=== PATIENT | male | born 1955 | race Caucasian/White ===

== ENCOUNTER 2020-12-13 07:36 | Outpatient (REF) | payer BC, SELFPAY ==
[2020-12-13 11:15] LABS: Anion Gap 9 (12-20); Blood Urea Nitrogen 23 mg/dL (9-16); Carbon Dioxide 33 mmol/L (22-29); Chloride 103 mmol/L (96-108); Estimated Glomerular Filt Rate > 60; Potassium 4.1 mmol/L (3.3-5.1); Sodium 141 mmol/L (135-145)
== END 2020-12-13 07:37 | disposition home or self-care (01) ==
LOC: HO.10HDL 07:36
PROVIDERS: Visit Provider Family Medicine
DX: I10 Essential (primary) hypertension (principal)
CPT/HCPCS: 36415; 80051; 82565; 84520

== ENCOUNTER 2021-07-31 09:06 | Outpatient (REF) | payer BC, SELFPAY ==
[2021-07-31 10:24] LABS: MANUAL DIFF FLAG NO
[2021-07-31 10:26] LABS: Basophils Percent Auto 0.3 % (0-2); Eosinophils Absolute Auto 0.4 X10*3/uL (0.0-0.4); Eosinophils Percent Auto 5.8 % (0-4); Hematocrit 39.2 % (42.0-52.0); Hemoglobin 12.1 g/dl (14.0-18.0); Imm Gran Abs Auto 0.01 X10*3/uL (0.00-0.03); Imm Gran Pct Auto 0.2 % (0.0-0.4); Lymphocytes Absolute Auto 1.6 X10*3/uL (1.2-4.9); Mean Corpuscular HGB Conc 30.9 g/dl (31.0-36.0); Mean Corpuscular Hemoglobin 27.7 pg (27.0-33.0); Mean Corpuscular Volume 89.7 fL (80.0-98.0); Mean Platelet Volume 9.6 fL (9.4-12.4); Monocytes Absolute Auto 0.7 X10*3/uL (0.1-1.2); Monocytes Percent Auto 11.9 % (2-11); Neutrophils Absolute Auto 3.37 x10*3/uL (2.0-8.3); Neutrophils Percent Auto 55.8 % (45-73); Platelet Count 313 X10*3/uL (160-400); Red Blood Count 4.37 X10*6/uL (4.60-5.80); Red Cell Distribution Width 13.2 % (11.0-16.0)
[2021-07-31 10:53] LABS: Anion Gap 9 (12-20); Blood Urea Nitrogen 26 mg/dL (9-16); Carbon Dioxide 30 mmol/L (22-29); Chloride 106 mmol/L (96-108); Cholesterol 132 mg/dL; Estimated Glomerular Filt Rate > 60; HDL Cholesterol 34 mg/dL; LDL Cholesterol Calculated 64 mg/dl; Potassium 4.1 mmol/L (3.3-5.1); Sodium 141 mmol/L (135-145); Triglycerides 173 mg/dL
== END 2021-07-31 09:07 | disposition home or self-care (01) ==
LOC: HO.10HDL 09:06
PROVIDERS: Visit Provider Family Medicine
DX: I10 Essential (primary) hypertension (principal); E78.00 Pure hypercholesterolemia, unspecified; D64.9 Anemia, unspecified
CPT/HCPCS: 36415; 80051; 80061; 82565; 84520; 85025

== ENCOUNTER 2022-07-03 08:51 | Outpatient (REF) | payer MEDICARE, SELFPAY ==
[2022-07-03 10:53] LABS: Anion Gap 13 (12-20); Blood Urea Nitrogen 23 mg/dL (9-16); Carbon Dioxide 30 mmol/L (22-29); Chloride 104 mmol/L (96-108); Estimated Glomerular Filt Rate > 60; Potassium 4.4 mmol/L (3.3-5.1); Sodium 143 mmol/L (135-145)
== END 2022-07-03 08:52 | disposition home or self-care (01) ==
LOC: HO.10HDL 08:51
PROVIDERS: Visit Provider Family Medicine
DX: I10 Essential (primary) hypertension (principal)
CPT/HCPCS: 36415; 80051; 82565; 84520

== ENCOUNTER 2022-07-28 08:14 | Outpatient (REF) | payer MEDICARE, SELFPAY ==
--- NOTE | ~2022-07-28 | XR_ITS ---
EXAMINATION: XR HIP, RIGHT CLINICAL INFORMATION: Pain of right hip COMPARISON: None TECHNIQUE: Two views of the right hip. FINDINGS: The femoral head is well-positioned within the intact acetabulum. The hip joint space is maintained. There appears to be negligible osteophyte formation at the lateral femoral head. No findings of any significant degenerative or inflammatory arthropathy of the hip. No osteonecrosis. No blastic or lytic bone lesion. The visualized right-sided pelvic bones, and right sacroiliac joint, are normal. Metallic tacks project over the lower pelvis. Vasectomy clips. XR/XR hip RT min 2V IMPRESSION: No fracture or malalignment. The right hip joint space is well-preserved. No significant findings at the right hip.
== END 2022-07-28 08:15 | disposition home or self-care (01) ==
LOC: HO.XRAY 08:14
PROVIDERS: PCP Family Medicine; Visit Provider Family Medicine
DX: M25.551 Pain in right hip (principal)
CPT/HCPCS: 73502

== ENCOUNTER 2022-10-21 08:01 | Outpatient (REF) | payer MEDICARE, SELFPAY ==
--- NOTE | 2022-10-21 | PFT_ITS ---
INDICATION: Shortness of breath. SPIROMETRY: FEV1 to FVC of 82% with an FEV1 of 2.75 L, which is 93% predicted and FVC of 3.32 L, which is predicted. No significant response to bronchodilators noted. Maximum voluntary ventilation predicted. LUNG VOLUMES: Total lung capacity 86% predicted with expiratory residual volume of 9% predicted. DIFFUSION CAPACITY: DLCO of 93% predicted. COMPARISONS: None. INTERPRETATION: No obstructive nor restrictive ventilatory defects identified. No significant response to bronchodilators noted. Normal maximum voluntary ventilation. Lung volumes are within normal limits, although a decrease in the expiratory residual volume could be the result of an elevated BMI. Diffusion capacity is within normal limits. No clear explanation for the patient's dyspnea based on the this PFT. Clinical correlation warranted. MD FRANCESCO Wynn/MODL / [id number]
== END 2022-10-21 08:02 | disposition home or self-care (01) ==
LOC: HO.RESP 08:01
PROVIDERS: PCP Family Medicine; Visit Provider Family Medicine
DX: J45.909 Unspecified asthma, uncomplicated (principal); R06.02 Shortness of breath
CPT/HCPCS: 94060; 94727; 94729

== ENCOUNTER 2022-11-24 12:11 | Outpatient (REF) | payer MEDICARE, SELFPAY ==
[2022-11-24 12:56] LABS: COVID-19 Test Negative (Negative); IDNOW Serial# BCCEAD1C
== END 2022-11-24 12:12 | disposition home or self-care (01) ==
LOC: HO.LAB 12:11
PROVIDERS: PCP Family Medicine; Visit Provider Internal Medicine
DX: Z20.822 Contact with and (suspected) exposure to COVID-19 (principal)
CPT/HCPCS: 87635; C9803

== ENCOUNTER 2022-11-24 14:14 | Outpatient (REF) | payer MEDICARE, SELFPAY ==
--- NOTE | ~2022-11-24 | XR_ITS ---
EXAMINATION: XR CHEST CLINICAL INFORMATION: Shortness of breath COMPARISON: Chest radiograph from 04/05/2013 TECHNIQUE: 2 views of the chest were obtained. FINDINGS: Slight prominence of interstitial lung markings. Right basilar atelectasis. No pneumothorax. Trachea is midline. Cardiac mediastinal silhouette is not enlarged. No large pleural effusion. Osseous structures are intact. Soft tissues are unremarkable. XR/XR chest 2V IMPRESSION: 1. Slight prominence of interstitial lung markings. 2. Right basilar atelectasis.
== END 2022-11-24 14:15 | disposition home or self-care (01) ==
LOC: HO.XRAY 14:14
PROVIDERS: PCP Family Medicine; Visit Provider Family Medicine
DX: R06.02 Shortness of breath (principal); R06.2 Wheezing; R05.9 Cough, unspecified
CPT/HCPCS: 71046

== ENCOUNTER 2023-11-19 11:59 | Outpatient (REF) | payer MEDICARE, SELFPAY ==
[2023-11-19 13:08] LABS: MANUAL DIFF FLAG NO
[2023-11-19 13:24] LABS: Basophils Percent Auto 0.4 % (0-2); Eosinophils Absolute Auto 0.3 X10*3/uL (0.0-0.4); Eosinophils Percent Auto 5.5 % (0-4); Hematocrit 44.5 % (42.0-52.0); Hemoglobin 14.6 g/dl (14.0-18.0); Imm Gran Abs Auto 0.01 X10*3/uL (0.00-0.03); Imm Gran Pct Auto 0.2 % (0.0-0.4); Lymphocytes Absolute Auto 1.7 X10*3/uL (1.2-4.9); Lymphocytes Percent Auto 30.4 % (20-40); Mean Corpuscular HGB Conc 32.8 g/dl (31.0-36.0); Mean Corpuscular Hemoglobin 30.9 pg (27.0-33.0); Mean Corpuscular Volume 94.1 fL (80.0-98.0); Mean Platelet Volume 9.2 fL (9.4-12.4); Monocytes Absolute Auto 0.6 X10*3/uL (0.1-1.2); Monocytes Percent Auto 11.8 % (2-11); Neutrophils Absolute Auto 2.8 x10*3/uL (2.0-8.3); Neutrophils Percent Auto 51.7 % (45-73); Platelet Count 245 X10*3/uL (160-400); Red Blood Count 4.73 X10*6/uL (4.60-5.80); Red Cell Distribution Width 12.5 % (11.0-16.0); White Blood Count 5.4 X10*3/uL (4.8-10.8)
[2023-11-19 13:55] LABS: Prostate Specific Antigen Scr 0.53 ng/mL (<0.05-4.0)
== END 2023-11-19 12:00 | disposition home or self-care (01) ==
LOC: HO.10HDL 11:59
PROVIDERS: Visit Provider Family Medicine
DX: R53.83 Other fatigue (principal); R35.1 Nocturia; Z12.5 Encounter for screening for malignant neoplasm of prostate
CPT/HCPCS: 36415; 84153; 85025

== ENCOUNTER 2024-10-12 13:39 | Outpatient (REF) | payer MEDICARE, SELFPAY ==
--- NOTE | ~2024-10-12 | XR_ITS ---
CLINICAL HISTORY: RIGHT SHOULDER PAIN 5 view right shoulder Comparison: None Findings: Bones intact. No dislocations. Moderate degenerative change of the glenohumeral and acromioclavicular joints. No erosions. No radiopaque foreign body. IMPRESSION: 1. No acute findings. 2. Moderate degenerative changes. This document has been electronically signed by: Jabari Hays MD on 10/13/2024 10:50:23
[2024-10-12 15:08] LABS: Appearance Urine Clear; Color Urine Yellow; Glucose Urine UA Negative (Negative); Leukocyte Esterase Urine Negative (Negative); Nitrite Urine Negative (Negative); PH 6.5 (5.0-9.0); Urine Blood Negative (Negative); Urine Ketones Negative (Negative); Urine Protein Negative (Neg-Trace)
== END 2024-10-12 13:40 | disposition home or self-care (01) ==
LOC: HO.XRAY 13:39
PROVIDERS: PCP Family Medicine; Visit Provider Family Medicine
DX: M25.511 Pain in right shoulder (principal); N23 Unspecified renal colic
CPT/HCPCS: 73030; 81003

== ENCOUNTER → 2024-10-12 14:00 | Outpatient (BNV) | payer MEDICARE, SELFPAY | PROVIDERS: PCP Family Medicine; Visit Provider Radiology Vascular & Interventional Radiology | DX: M19.011 Primary osteoarthritis, right shoulder (principal) | CPT/HCPCS: 73030 ==

== ENCOUNTER 2024-12-29 11:14 | Outpatient (REF) | payer MEDICARE, SELFPAY ==
--- OUTSIDE RECORDS SUMMARY | 2024-12-29 12:34 | XMS_ITS | Encounter Summary ---
Author Organization [facility] Address [address] [place] [address] Care Team Providers Care Deep Sea Diver Name Role Phone Pcp, No Primary Care Provider Unavailabl e Encounter Details Date Type Department Care Team (Late st Contact Info) Description 09/07/2017 Scanned Document [address] [phone] Provider, Generic Social History Tobacco Use Types [...] on filedocumented in this encounter Care Teams Deep Sea Diver Relationship Specialty Start Date End Date Pcp, No PCP - General General Medicine 06/11/17 documented as of this encounter
--- OUTSIDE RECORDS SUMMARY | 2024-12-29 12:34 | XMS_ITS ---
Author Name [facility] Organization Unknown Encounters Encounter Type Encounter Reason Primary Diagnosis Location Date Ambulatory Spinal stenosis, lumbar region without neurogenic claudication [facility] 10/24/2021 Care Team Organization Name Specialty Phone Email Start Date End Da te [facility] PCP,No Primary Care 10/24/2021 [facility] Primary Care 10/24/2021
--- OUTSIDE RECORDS SUMMARY | 2024-12-29 12:34 | XMS_ITS | Encounter Summary ---
Author Organization [facility] Address [address] [place] [address] Care Team Providers Care Club Licensee Name Role Phone Pcp, No Primary Care Provider Unavailabl e Encounter Details Date Type Department Care Team (Late st Contact Info) Description 09/02/2017 Scanned Document [address] [phone] Provider, Generic Social History Tobacco Use Types [...] on filedocumented in this encounter Care Teams Club Licensee Relationship Specialty Start Date End Date Pcp, No PCP - General General Medicine 06/11/17 documented as of this encounter
--- OUTSIDE RECORDS SUMMARY | 2024-12-29 12:34 | XMS_ITS | Clinical Summary ---
Author Organization [facility] Address [address] [place] [address] Care Team Providers Care Implant Polisher Name Role Phone Pio Hooper Primary Care Provider [phone] Allergies Active Allergy Reactions Criticality Noted Date [...] reflux disease without esophagi tis 06/16/2017 Immunizations Immunization Administration Dates Next Due COVID-19 mRNA (PFIZER) [...] Vaccines (1 of 2) 2004 Pneumococcal Vaccine, 50+ Years (2 of 2 - PPSV23) 06/17/2020 06/17/2019 COVID-19 Vaccine (3 - 2023-2 5 season) 2024 12/22/2020, 11/30/2020 Influenza Vaccine (Season Ended) 2025 06/17/2019 HPV Vaccines Aged Out No longer eligi ble based on patient's age to complete this topic Hepatitis A Vaccines Aged Out No long er eligible based on patient's age to complete this topic Meningococcal Vaccine Aged Out No po veronika eligible based on patient's age to complete this topic Insurance AIG Advance Directives For more information, please contact: [phone] Documents on File Type Date Recorded Patient Counterintelligence Analyst Expl anation Advance Directives 07/23/2018 1:19 PM Care Teams Implant Polisher Relationship Specialty Start Date End Date Pio Hooper [address] [place] [phone] PCP - General 10/24/21
--- OUTSIDE RECORDS SUMMARY | 2024-12-29 12:34 | XMS_ITS | Clinical Summary ---
Author Organization [facility] Address [address] [place] [address] Care Team Providers Care Appellate Court Judge Name Role Phone Pio Hooper MD Primary Care Provider [phone] Social History Tobacco Use Types Packs/Day Years [...] age to complete this topic Care Teams Appellate Court Judge Relationship Specialty Start Date End Date Pio Hooper MD [address] [place] [address] [place] [address] PCP - General Internal Medicine 09/07/17
--- OUTSIDE RECORDS SUMMARY | 2024-12-29 12:34 | XMS_ITS | Patient Health Record ---
Author Organization [facility] Address [address] [place] [phone] Care Team Providers Care Chisel Mortiser Operator Name Role Phone Rufus RICHARDSON, Pio Primary Care Provider UnavailDavian Herrera Unavailable [phone] Allergies Allergen (clinical drug ingredient) Drug/Non Drug Allergy documented on EMR Reaction Allergy Type Onset Date Status Substance with 5-rnfdeaw-1-methylgluta ryl-coenzyme A reductase inhibitor mechanism of action (substance) Statins Unknown Drug Allergy Active Penicillin Unknown Drug Allergy Active Reason For Referral No Information Medications Medication SIG (Take, Route, Frequency, Duration) Notes [...] 20 MG Oral for 90 A ctive Immunizations Vaccine Route Administration Date Status Comme nts Influenza Unknown 07/07/2018 Administered Influenza Unknown 06/01/2019 Administered Pneumococcal Unknown 05/29/2019 Administered Social History Tobacco Use: Social History Observation Description Date Details (start date - stop date) Former Smoker NA - NA Tobacco Use/Smoking Question Answer Notes Patient is a former smoker How long has it been since you last smoked? > 10 years Section Notes: Nonsmoker > 10 yrs;no alcoho l Nonsmoker > 10 yrs;no alcoho l Nonsmoker > 10 yrs;no alcoho l Nonsmoker > 10 yrs;no alcoho l Nonsmoker > 43 yrs;no alcoho l Problems Problem Type SNOMED Code ICD Code Onset Dates Problem Status W/U Status Risk Notes Problem 904521097 Encounter for screening for malignant neoplasm of colon (Z12.11) Active confirmed Problem 819365105 Gastroesophageal reflux disease with esophagitis (K21.0) Active confirmed Problem 866249814 Hx of adenomatou s colonic polyps (Z86.010) Active confirmed Problem Gastroesophageal reflux disease (disorder) (941697736) Chronic GERD (K21.9) Active confirmed Problem Personal history of adenomatous and serrated colon polyps (Z86.0101) Active confirmed Vital Signs Blood pressure diastolic 00 mm Hg 09/13/2024 Height 66 in 09/13/2024 Blood pressure systolic 00 mm Hg 09/13/2024 Weight 170 lbs 09/13/2024 BMI 27.44 kg/m2 09/13/2024 Encounters Encounter Location Date Provider Diagnosis [facility] [address] [place] [address] 09/13/2024 Davian Ochoa Hx of adenomatous colonic polyps Z86.010 ; Chronic GERD K21.9 and Encounter for screening for malignant neoplasm of colon Z12.11 Assessments Encounter Date Diagnosis (ICD Code) Assessment Notes Treatment Notes Treatment Clinical Notes Section Notes 09/13/2024 Hx of adenomatous colonic polyps (ICD-10 - Z86.010) Overall, Delfino appears well. His reflux seems to be stable on his current omeprazole regimen. Given the history of esophagitis I advised him to continue this on a long-term basis. Given no particular upper GI complaints presently and no history of Goldman's esophagus, I don't think a repeat endoscopy is required at this time. I did recommend a followup colonoscopy for further screening given his history of tubular adenomas and his last colonoscopy being over 5 years ago. We did review the rationale for that in regard to colon cancer prevention. Full consent was obtained for this, including risks of bleeding and perforation. The procedure will be done monitored anesthesia care. He was advised to stop his clopidogrel for 3 days before the procedure and we shall clear that with his neurologist. Delfino was comfortable with this plan. Thank you again for allowing me to participate in Delfino's care. I shall continue to keep you advised of his progress. 09/13/2024 Chronic GERD (ICD-10 - K21.9) Overall, Delfino appears well. His reflux seems to be stable on his current omeprazole regimen. Given the history of esophagitis I advised him to continue this on a long-term basis. Given no particular upper GI complaints presently and no history of Goldman's esophagus, I don't think a repeat endoscopy is required at this time. I did recommend a followup colonoscopy for further screening given his history of tubular adenomas and his last colonoscopy being over 5 years ago. We did review the rationale for that in regard to colon cancer prevention. Full consent was obtained for this, including risks of bleeding and perforation. The procedure will be done monitored anesthesia care. He was advised to stop his clopidogrel for 3 days before the procedure and we shall clear that with his neurologist. Delfino was comfortable with this plan. Thank you again for allowing me to participate in Delfino's care. I shall continue to keep you advised of his progress. 09/13/2024 Encounter for screening for malignant neoplasm of colon (ICD-10 - Z12.11) Stop Plavix(Clopidog rel) for three days before the colonoscopy and we will clear that with your neurologist, Dr. Hearn. Overall, Delfino appears well. His reflux seems to be stable on his current omeprazole regimen. Given the history of esophagitis I advised him to continue this on a long-term basis. Given no particular upper GI complaints presently and no history of Goldman's esophagus, I don't think a repeat endoscopy is required at this time. I did recommend a followup colonoscopy for further screening given his history of tubular adenomas and his last colonoscopy being over 5 years ago. We did review the rationale for that in regard to colon cancer prevention. Full consent was obtained for this, including risks of bleeding and perforation. The procedure will be done monitored anesthesia care. He was advised to stop his clopidogrel for 3 days before the procedure and we shall clear that with his neurologist. Delfino was comfortable with this plan. Thank you again for allowing me to participate in Delfino's care. I shall continue to keep you advised of his progress. Plan Of Treatment Future Test Test Name Order Date COLONOSCOPY 11/08/2013 UPPER GI ENDOSCOPY 10/27/2018 COLONOSCOPY 10/27/2018 COLONOSCOPY 09/13/2024 Next Appt Details Provider Name:Davian Ochoa , 01/02/2025 10:40:00 AM, [address] , [place], [place], [id number], Insurance Providers Payer Name Payer Address Payer Phone Subscriber Number Group Number Insured Name Patient Relationship to Insured Coverage Start Date Coverage End Date [facility] [address] [place] [address] [id number] MARTÍN PIRES Self - patient is the insured Medical (General) History Medical History History ICD Code GERD-EGD's in 1998, 2007, an d 11-14-2008--reflux esophagitis--small to mod-sized HH---no Goldman's Colonoscopy 07-17-2006--1 small tubular adenoma removed Hyperlipidemia Anxiety Asthma Denies OR,DM,renal disease Neg. colonoscopy in 04/2014 e xcept [...]
--- OUTSIDE RECORDS SUMMARY | 2024-12-29 12:34 | XMS_ITS | Encounter Summary ---
Author Organization [facility] Address [address] [place] [address] Care Team Providers Care Wind Commissioning Technician Name Role Phone Pcp, No Primary Care Provider Unavailabl e Encounter Details Date Type Department Care Team (Late st Contact Info) Description 09/07/2017 Scanned Document [address] [phone] Provider, Generic Social History Tobacco Use Types [...] on filedocumented in this encounter Care Teams Wind Commissioning Technician Relationship Specialty Start Date End Date Pcp, No PCP - General General Medicine 06/11/17 documented as of this encounter
--- OUTSIDE RECORDS SUMMARY | 2024-12-29 12:34 | XMS_ITS ---
Author Organization [facility] Address [address] [place] [phone] Care Team Providers Care Sugar Cane Farm Manager Name Role Phone Rufus RICHARDSON, Pio Primary Care Provider UnavailDavian Herrera Unavailable [phone] Allergies Allergen (clinical drug ingredient) Drug/Non Drug Allergy documented on EMR Reaction Allergy Type Onset Date Status Substance with 5-mhrngct-4-methylgluta ryl-coenzyme A reductase inhibitor mechanism of action (substance) Statins Unknown Drug Allergy Active Penicillin Unknown Drug Allergy Active REASON FOR VISIT Patient presents today for a COLON SCREENING Medications Medication SIG (Take, Route, Frequency, Duration) [...] EVERY 14 DAYS Subcutaneous for 84 Active Social History Tobacco Use: Social History Observation Description Date Details (start date - stop date) Former Smoker NA - NA Tobacco Use/Smoking Question Answer Notes Patient is a former smoker How long has it been since you last smoked? > 10 years Section Notes: Nonsmoker > 43 yrs;no alcoho l Problems Problem Type SNOMED Code ICD Code Onset Dates Problem Status W/U Status Risk Notes Problem Gastroesophageal reflux disease (disorder) (528987002) Chronic GERD (K21.9) Active confirmed Problem Personal history of adenomatous and serrated colon polyps (Z86.0101) Active confirmed Vital Signs Blood pressure systolic 00 mm Hg 09/13/20 24 Blood pressure diastolic 00 mm Hg 024 Height 66 in 09/13/2024 Weight 170 lbs 09/13/2024 BMI 27.44 kg/m2 09/13/2024 Encounters Encounter Location Date Provider Diagnosis [facility] [address] [place] [address] 09/13/2024 Davian Ochoa Hx of adenomatous colonic [...] we shall clear that with his neurologist. Deflino was comfortable with this plan. Thank you again for allowing me to participate in Delfino's care. I shall continue to keep you advised of his progress. Plan Of Treatment Treatment Notes Assessment Notes Encounter for screening for malignant neoplasm of colon Stop Plavix(Clopidogrel) for three days before the colonoscopy and we will clear that with your neurologist, Dr. Hearn. Future Test Test Name Order Date COLONOSCOPY 09/13/2024 Next Appt Details Follow Up: prn, Reason: Provider Name:Davian Ochoa , 01/02/2025 10:40:00 AM, [address] [place] [address] , [place], [place], [phone], Progress Notes * MARTÍN PIRESDOB: [birth year] (69 yo M)Acc No.[id number]:09/13/2024 Progress Notes Patient:?MARTÍN PIRES Provider:?Davian Ochoa MD :1955???Age:69 Y???Sex:Male Richard e:09/13/2024 Address:[address], [id number] Pcp:Pio Hooper MD Subjective: * Chief Complaints: * ???Patient presents today fo r a COLON SCREENING * HPI: ???incontinence:? I saw Delfino in the office today for evaluation of his personal history of tubular adenomas of the colon and need for colorectal cancer screening, as well as his chronic gastroesophageal reflux and esophagitis. Delfino asked permission for and was granted permission to record our visit on his cell phone due to his memory issues related to his previous stroke. ?I last saw Delfino in 2019. Since that time he has been doing well from a GI standpoint. He is currently on omeprazole twice a day with good relief of heartburn symptoms. He denies any dysphagia, anorexia, early satiety, nausea, nor vomiting. His bowel movements have been regular and without any signs of bleeding. He denies any abdominal pain, signs of jaundice, nor weight loss. He denies any known family history of colorectal cancer. ?As you know, he did have a stroke in 2020 with subsequent right carotid artery surgery. For the most part he has recovered completely although reports some memory issues. He is on clopidogrel. * ROS:?General/Constitutional:?Change in appetite?denies.?Chills?denies.?Fatigue?denies.?Ophthalmologic:?Patient denies? Negative..?ENT:?Patient denies?Negative..?Respiratory:?Patient denies?No coughing/hemoptysis..?Cardiovascular:?Patient denies? No chest pain/orthopnea..?Gastrointestinal:?Comments?See HPI for details.?Genitourinary:?Patient denies? No dysuria/hematuria..?Musculoskeletal:?Patient denies? No specific arthralgias/myalgias..?Skin:?Patient denies?No rash/pruritus..?Neurologic:?Patient denies? No headaches/seizures..?Psychiatric:?Patient denies?Negative..? * Medical History:? * Surgical History:?Bilateral inguinal hernia surgery x2 Right rotator cuff tear repair Right carotid-Dr. Holbrook * Hospitalization/Major Diagno stic Procedure:?No Hospitalization History. * Family History:?Father: dece ased.?Mother: , diagnosed with HTN (hypertension), Diabetes, Heart disease.? He denies any family history of esophageal problems, colorectal cancer nor ulcer disease. * Social History:?Tobacco Use:?Tobacco Use/Smoking?Patient is a?former smoker,?How long has it been since you last smoked??> 10 years.?Drugs/Alcohol:?Alcohol Screen?Points: 0, Interpretation: Negative.?Miscellaneous:?Marital status: . 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 ???Nonsmoker >43 yrs;no alcohol. * Medications:?TakingAllergy 2 4-HR 180 MG Tablet 1 tablet Swallow whole with water; do not take with fruit juices. Orally Once a dayVitamin C 1000 MG Tablet 1 tablet Orally twice a dayFlovent HFA 110 MCG/ACT Aerosol 1 puff Inhalation Twice a dayMetoprolol Succinate 25 MG Capsule ER 24 Hour Sprinkle 1 capsule Orally Once a dayamLODIPine Besylate 5 MG Tablet Oral Omeprazole 20 MG Capsule Delayed Release Oral Clopidogrel Bisulfate 75 MG Tablet TAKE 1 TABLET BY MOUTH EVERY DAY DIRECTED Oral Doxazosin Mesylate 8 MG Tablet Oral Repatha SureClick 140 MG/ML Solution Auto-injector INJECT 140 MG SUBCUTANEOUSLY EVERY 14 DAYS Subcutaneous Magnesium 200 MG Tablet as directed Orally Once at nightTaking Allergy 24-HR 180 MG Tablet 1 tablet Swallow whole with water; do not take with fruit juices. Orally Once a dayTaking Vitamin C 1000 MG Tablet 1 tablet Orally twice a dayTaking Flovent HFA 110 MCG/ACT Aerosol 1 puff Inhalation Twice a dayTaking Metoprolol Succinate 25 MG Capsule ER 24 Hour Sprinkle 1 capsule Orally Once a dayTaking amLODIPine Besylate 5 MG Tablet Oral Taking Omeprazole 20 MG Capsule Delayed Release Oral Taking Clopidogrel Bisulfate 75 MG Tablet TAKE 1 TABLET BY MOUTH EVERY DAY DIRECTED Oral Taking Doxazosin Mesylate 8 MG Tablet Oral Taking Repatha SureClick 140 MG/ML Solution Auto-injector INJECT 140 MG SUBCUTANEOUSLY EVERY 14 DAYS Subcutaneous Taking Magnesium 200 MG Tablet as directed Orally Once at nightDiscontinuedLosartan Potassium-HCTZ 100-12.5 MG Tablet 1 tablet Orally Once a dayZantac 150 MG Tablet 1 tablet Orally BID for heartburn/reflux/prnLansoprazole 30 MG Capsule Delayed Release 1 capsule Orally twice a dayMedication List reviewed and reconciled with the patientDiscontinued Losartan Potassium-HCTZ 100-12.5 MG Tablet 1 tablet Orally Once a dayDiscontinued Zantac 150 MG Tablet 1 tablet Orally BID for heartburn/reflux/prnDiscontinued Lansoprazole 30 MG Capsule Delayed Release 1 capsule Orally twice a dayMedication List reviewed and reconciled with the patient * Allergies:?PenicillinStatins yes[Allergies Verified] Objective: * Vitals:?Wt: 170 lbs, Ht: 66 in, BMI:27.44 Index, BP: 00/00 mm Hg. * Examination: ???General Examination: ?GENERAL APPEARANCE:?pleasant, well nourished, well developed, in no acute distress.?EYES:?sclera non-icteric.?ORAL CAVITY:?mucosa moist.?NECK/THYROID:?no cervical lymphadenopathy, neck supple.?SKIN:?nonjaundiced, no spider angiomata..?HEART:?S1, S2 normal.?LUNGS:?clear to auscultation bilaterally.?ABDOMEN:?normal bowel sounds, no guarding or rigidity, no hepatosplenomegaly, no masses palpable, soft, nontender, nondistended..?EXTREMITIES:?no edema.?NEUROLOGIC:?alert and oriented.? Assessment: * Assessment: 1.?Chronic GERD - K21.9 (Reyna serrato)?2.?Hx of adenomatous colonic polyps - Z86.010?3.?Encounter for screening for malignant neoplasm of colon - Z12.11? Overall, Delfino appears well. His reflux seems [...] to keep you advised of his progress. Plan: * Treatment: 2.?Encounter for screening for malignant neoplasm of colon?Procedure: COLONOSCOPY (Ordered for 09/13/2024)* with MACsched for 01/02/25 at 10:40 ammiralax Notes: Stop Plavix(Clopidogrel) for three days before the colonoscopy and we will clear that with your neurologist, Dr. Hearn.?? * Procedure Codes:?3017F COLOR ECTAL CA SCREEN DOC [id number] TOBACCO [id number] BP SCR NOT PRFRM REC REASON NOS * Preventive Medicine:? ??Counseling:?Care goal follow-up plan:?Above Normal BMI Follow-up?Giving encouragement to exercise,?BMI management provided?Yes.? ??Screenings:?Fall Risk Screening?Fall Risk Assessment:?No falls in the past year,?Screening:?No falls in the past year,?Assessment:?Not performed, no reason specified,?Plan of Care:?Not documented, no reason specified.? * Follow Up:?prn * * Sign off status: Completed true * Provider:?Davian Ochoa MD Date:? 024 Generated for Ludy sun/Carlos/Lissett on:?12/29/2024 12:34 PM EDT History and Physical Notes * HPI (History of Present Illness) Category Sub-Category Detail Notes Category Not es incontinence I saw Delfino in the office today for evaluation of his personal history of tubular adenomas of the colon and need for colorectal cancer screening, as well as his chronic gastroesophageal reflux and esophagitis. Delfino asked permission for and was granted permission to record our visit on his cell phone due to his memory issues related to his previous stroke. I last saw Delfino in 2019. Since that time he has been doing well from a GI standpoint. He is currently on omeprazole twice a day with good relief of heartburn symptoms. He denies any dysphagia, anorexia, early satiety, nausea, nor vomiting. His bowel movements have been regular and without any signs of bleeding. He denies any abdominal pain, signs of jaundice, nor weight loss. He denies any known family history of colorectal cancer. As you know, he did have a stroke in 2020 with subsequent right carotid artery surgery. For the most part he has recovered completely although reports some memory issues. He is on clopidogrel. Examination Category Sub-Category Detail Notes Category Not es General Examination GENERAL APPEARANCE: pleasant , well [...]
--- OUTSIDE RECORDS SUMMARY | 2024-12-29 12:34 | XMS_ITS | Clinical Summary ---
Author Organization [facility] Address [address] [place] [address] Care Team Providers Care Knapsack Sprayer Name Role Phone Pcp, No Primary Care [...] age to complete this topic Care Teams Knapsack Sprayer Relationship Specialty Start Date End Date Pcp, No PCP - General General Medicine 06/11/17
[2024-12-29 13:54] LABS: Alanine Aminotransferase 27 U/L (0-40); Anion Gap 11 (12-20); Aspartate Amino Transferase 33 U/L (5-37); Blood Urea Nitrogen 16 mg/dL (9-16); Carbon Dioxide 34 mmol/L (22-29); Chloride 103 mmol/L (96-108); Cholesterol 129 mg/dL (<200); Estimated Glomerular Filt Rate > 60; HDL Cholesterol 42 mg/dL (>40); LDL Cholesterol Calculated 56 mg/dL (<100); Potassium 4.7 mmol/L (3.3-5.1); Sodium 143 mmol/L (135-145); Triglycerides 157 mg/dL (<150)
== END 2024-12-29 11:15 | disposition home or self-care (01) ==
LOC: HO.10HDL 11:14
PROVIDERS: Referring Provider Psychiatry & Neurology Neurology; Visit Provider Family Medicine
DX: E78.00 Pure hypercholesterolemia, unspecified (principal); I10 Essential (primary) hypertension
CPT/HCPCS: 36415; 80051; 80061; 82565; 84450; 84460; 84520

== ENCOUNTER 2025-01-02 09:26 | Day surgery (SDC) | payer MEDICARE, SELFPAY ==
--- OUTSIDE RECORDS SUMMARY | 2024-11-23 08:42 | XMS_ITS | Clinical Summary ---
Author Organization [facility] Address [address] [place] [address] Care Team Providers Care Roof Foreman Name Role Phone Pio Hooper MD Primary Care Provider Social History Tobacco Use Types Packs/Day Years Used Date Smoking Tobacco: Never Assessed Sex and Gender Information Value Date Recorded Sex Assigned at Not on file Gender Identity Not on file Sexual Orientation Not on file Plan of Treatment Health Maintenance Due Date Last Done Comments Hepatitis C Screening 1954 COVID-19 Vaccine (#1) 1954 Depression Screening 1966 Preventative Health Evaluation 1972 DTap / Tdap / Td (1 - Tdap) 1973 Colon Cancer Screening (Colonoscopy) 1999 Shingrix-Zoster Vaccine (1 of 2) 2004 Fall Risk Assessment 2019 Pneumococcal Vaccine (1 of 1 - PCV) 2019 Influenza Vaccine (#1) 2024 RSV Adult > 60+ Yrs or Pregn ant (1 - 1-dose 75+ series) 2029 Hepatitis B Vaccines Aged Out No long er eligible based on patient's age to complete this topic RSV Ped < 20 months Aged Out No longe r eligible based on patient's age to complete this topic Care Teams Roof Foreman Relationship Specialty Start Date End Date Pio Hooper MD [address] [place] [address] [place] [id number] PCP - General Internal Medicine 09/07/17
--- OUTSIDE RECORDS SUMMARY | 2024-11-23 08:42 | XMS_ITS | Encounter Summary ---
Author Organization [facility] Address [address] [place] [address] Care Team Providers Care Insurance Investigator Name Role Phone Pcp, No Primary Care Provider Unavailabl e Encounter Details Date Type Department Care Team (Late st Contact Info) Description 09/07/2017 Scanned Document [address] [phone] Provider, Generic Social History Tobacco Use Types Packs/Day Years Used Date Smoking Tobacco: Former Smokeless Tobacco: Never Alcohol Use Standard Drinks/Week Comments Yes 0 (1 standard drink = 0.6 oz pur e alcohol) rare social Sex and Gender Information Value Date Recorded Sex Assigned at Not on file Gender Identity Not on file Sexual Orientation Not on file documented as of this encounter Plan of Treatment Not on file documented as of this encounter Procedures Procedure Name Priority Date/Time Associated Diagnosis Comments MRI EXTERNAL RESULT 09/07/2017 documented in this encounter Results * MRI EXTERNAL RESULT (09/07/2017) Anatomical Region Laterality Modality Magnetic Resonan ce Narrative 09/07/2017 Ordered by an unspecified provider. Generic Provider IMG MRI ORDERABLES documented in this encounter Visit Diagnoses Not on filedocumented in this encounter Care Teams Insurance Investigator Relationship Specialty Start Date End Date Pcp, No PCP - General General Medicine 06/11/17 documented as of this encounter
--- OUTSIDE RECORDS SUMMARY | 2024-11-23 08:42 | XMS_ITS | Encounter Summary ---
Author Organization [facility] Address [address] [place] [address] Care Team Providers Care Gui Developer Name Role Phone Pcp, No Primary Care Provider Unavailabl e Encounter Details Date Type Department Care Team (Late st Contact Info) Description 09/07/2017 Scanned Document [address] [phone] Provider, Generic Social History Tobacco Use Types [...] on filedocumented in this encounter Care Teams Gui Developer Relationship Specialty Start Date End Date Pcp, No PCP - General General Medicine 06/11/17 documented as of this encounter
--- OUTSIDE RECORDS SUMMARY | 2024-11-23 08:42 | XMS_ITS | Clinical Summary ---
Author Organization [facility] Address [address] [place] [address] Care Team Providers Care Rn Ambulatory Name Role Phone Pio Hooper Primary Care Provider [phone] Allergies Active Allergy Reactions Criticality Noted Date Comments Atorvastatin 10/24/2021 Other reaction(s): rhabdo, elevated CPK - allergic to all STATINS Penicillin 11/05/2017 Medications FLOVENT HFA 110 mcg/actuation inhaler 04/09/2018 Active metoprolol succinate XL (TOPROL-XL) 25 mg 24 hr tablet 04/25/2018 Act aleah sildenafil (VIAGRA) 100 mg tablet 03/17/2018 Active MAGNESIUM ORAL Take 40 mg by mouth. Active ascorbic acid, vitamin C, (ascorbic acid with pamella hips) 500 mg tablet Take 500 mg by mouth daily. Active doxazosin (CARDURA) 4 mg tablet 10/01/2021 Active Praluent Pen 150 mg/mL pen injector 10/07/2021 Active omeprazole (PriLOSEC) 20 mg capsule 09/10/2021 Active Active Problems Problem Noted Date Diagnosed Date Lumbar radiculopathy, acute 07/01/2017 Protrusion of lumbar intervertebral disc 017 Essential hypertension 06/16/2017 Gastroesophageal reflux disease without esophagi tis 06/16/2017 Immunizations Name Administration Dates Next Due COVID-19 mRNA (PFIZER) 12/22/2020,11/30/2020 Family History Relation Status Comments Father Mother Social History Tobacco Use Types Packs/Day Years Used Date Smoking Tobacco: Former Cigarettes Q uit: 1973 Smokeless Tobacco: Never Alcohol Use Standard Drinks/Week Comments No 0 (1 standard drink = 0.6 oz pur e alcohol) Sex and Gender Information Value Date Recorded Sex Assigned at Not on file Legal Sex Male 11:48 PM EST Gender Identity Not on file Sexual Orientation Not on file Last Filed Vital Signs Vital Sign Reading Time Taken Comments Blood Pressure 170/83 03/13/2021 10:21 AM EDT Pulse 50 03/13/2021 10:21 AM EDT Temperature 36.3 ??C (97.4 ??F) 03/13/2021 9:41 AM ED T Respiratory Rate 16 03/13/2021 10:21 AM EDT Oxygen Saturation 95% 03/13/2021 10:21 AM EDT Inhaled Oxygen Concentration - - Weight 77.1 kg (170 lb) 03/13/2021 9:41 AM EDT Height 170.2 cm (5' 7 ) 03/11/2021 3:18 PM EDT Body Mass Index 26.63 03/11/2021 3:18 PM EDT Plan of Treatment Health Maintenance Due Date Last Done Comments CT Colonography 1954 Colonoscopy 1954 Colorectal Cancer Screening 1954 FIT-DNA (Cologuard) 1954 FIT 1954 FOBT 1954 Flex Sigmoidoscopy - 5y 1954 HIV Screening 1954 DTaP,Tdap,and Td Vaccines (1 - Tdap) 1972 Zoster Vaccines (1 of 2) 2004 Pneumococcal Vaccine, 65+ Years (2 of 2 - PPSV23 or PCV20) 06/17/2020 06/17/2019 COVID-19 Vaccine (3 - 2023-2 5 season) 2024 12/22/2020, 11/30/2020 Influenza Vaccine (#1) 2024 06/17/2019 HPV Vaccines Aged Out No longer eligi ble based on patient's age to complete this topic Hepatitis A Vaccines Aged Out No long er eligible based on patient's age to complete this topic Meningococcal Vaccine Aged Out No po veronika eligible based on patient's age to complete this topic Insurance AIG Advance Directives For more information, please contact: [phone] Documents on File Type Date Recorded Patient Cigarette And Filter Chief Inspector Expl anation Advance Directives 07/23/2018 1:19 PM Care Teams Rn Ambulatory Relationship Specialty Start Date End Date Pio Hooper [address] [place] [phone] PCP - General 10/24/21
--- OUTSIDE RECORDS SUMMARY | 2024-11-23 08:42 | XMS_ITS | Patient Health Record ---
Author Organization [facility] Address [address] [place] [phone] Care Team Providers Care Deburr Operator Name Role Phone Pio Hooper MD Primary Care Provider UnavailDavian Herrera Unavailable [phone] ALLERGIES Allergen (clinical drug ingredient) Drug/Non Drug Allergy documented on EMR Reaction Allergy Type Onset Date Status Substance with 1-jtwerar-1-methylgluta ryl-coenzyme A reductase inhibitor mechanism of action (substance) Statins Unknown Drug Allergy Active Penicillin Unknown Drug Allergy Active REASON FOR REFERRAL No Information MEDICATIONS Medication SIG (Take, Route, Frequency, Duration) Notes Start Date End Date Status amLODIPine Besylate 5 MG Oral for 90 Active Metoprolol Succinate 25 MG 1 capsule Orally Once a day Active Allergy 24-HR 180 MG 1 tablet Swallow wh ole with water; do not take with fruit juices. Orally Once a day for 30 day(s) Active Flovent HFA 110 MCG/ACT 1 puff Inhalatio n Twice a day Active Vitamin C 1000 MG 1 tablet Orally twice a day Active Doxazosin Mesylate 8 MG Oral for 90 Active Clopidogrel Bisulfate 75 MG TAKE 1 TABLET BY MOUTH EVERY DAY DIRECTED Oral for 90 Active Magnesium 200 MG as directed Orally O nce at night Active Repatha SureClick 140 MG/ML INJECT 140 MG SUBCUTANEOUSLY EVERY 14 DAYS Subcutaneous for 84 Active Omeprazole 20 MG Oral for 90 A ctive IMMUNIZATIONS Vaccine Route Administration Date Status Comme nts Influenza Unknown 07/07/2018 Administered Influenza Unknown 06/01/2019 Administered Pneumococcal Unknown 05/29/2019 Administered SOCIAL HISTORY Tobacco Use: Social History Observation Description Date Details (start date - stop date) Former Smoker NA - NA Sex Assigned At : Social History Observation Description Sex Assigned At Unknown Tobacco Use/Smoking Question Answer Notes Patient is a former smoker How long has it been since you last smoked? > 10 years PROBLEMS Problem Type ICD Code Onset Dates Problem Status W/U Status Risk SNOMED Code Notes Problem Encounter for screening for malignant neoplasm of colon (Z12.11) Active confirmed 392028964 Problem Gastroesophageal reflux disease with esophagitis (K21.0) Active confirmed 853585704 Problem Hx of adenomatous colonic polyps (Z86.010) Active confirmed 325165517 Problem Chronic GERD (K21.9) Active confirmed Gastroesophagea l reflux disease (disorder) (539240844) Problem Personal history of adenomatous and serrated colon polyps (Z86.0101) Active confirmed VITAL SIGNS Blood pressure diastolic 00 mm Hg 09/13/2024 Height 66 in 09/13/2024 Blood pressure systolic 00 mm Hg 09/13/2024 Weight 170 lbs 09/13/2024 BMI 27.44 kg/m2 09/13/2024 Encounters Encounter Location Date Provider Diagnosis [facility] [address] [place] [address] 09/13/2024 Davian Ochoa Hx of adenomatous colonic polyps Z86.010 ; Chronic GERD K21.9 and Encounter for screening for malignant neoplasm of colon Z12.11 ASSESSMENTS Encounter Date Diagnosis Assessment Notes Treatment Notes Treatment Clinical Notes 09/13/2024 Hx of adenomatous colonic polyps (ICD-10 - Z86.010) 09/13/2024 Chronic GERD (ICD-10 - K21.9) 09/13/2024 Encounter for screening for malignant neoplasm of colon (ICD-10 - Z12.11) Stop Plavix(Clopidogrel ) for three days before the colonoscopy and we will clear that with your neurologist, Dr. Hearn. PLAN OF TREATMENT Future Test Test Name Order Date COLONOSCOPY 11/08/2013 UPPER GI ENDOSCOPY 10/27/2018 COLONOSCOPY 10/27/2018 COLONOSCOPY 09/13/2024 Next Appt Details Provider Name:Davian Ochoa , 01/02/2025 10:40:00 AM, [address] [facility] , [place], [place], [id number], Insurance Providers Payer Name Payer Address Payer Phone Subscriber Number Group Number Insured Name Patient Relationship to Insured Coverage Start Date Coverage End Date [facility] [address] [place] [address] [id number] MARTÍN PIRES Self - patient is the insured MEDICAL (GENERAL) HISTORY Medical History History ICD Code GERD-EGD's in 1998, 2007, an d 11-14-2008--reflux esophagitis--small to [facility] HH---no [facility] Colonoscopy 07-17-2006--1 small tubular adenoma removed Hyperlipidemia Anxiety Asthma Denies [place],DM,renal disease Neg. colonoscopy in 04/2014 e xcept for diverticulosis and internal hemorrhoids Steroid injections in back HTN Sleep apnea Colonoscopy in 05/2019 with a small tubul ar adenioma removed GERD--EGD in 05/2019 with sma ll to [facility] HH with erosive esophagitis--no [facility], gastric bx neg for Hpylori--his lansoprazole was increased to b.i.d. at that time Stroke 02/2021-Dr. Hearn-- Kidney stones Surgical History Surgery Date(Month/Year) Bilateral inguinal hernia surgery x2 Right rotator cuff tear repair Right carotid-Dr. Holbrook
--- OUTSIDE RECORDS SUMMARY | 2024-11-23 08:42 | XMS_ITS | Clinical Summary ---
Author Organization [facility] Address [address] [place] [address] Care Team Providers Care Form Coverer Name Role Phone Pcp, No Primary Care Provider Unavailabl e Allergies Active Allergy Reactions Criticality Noted Date Comments Penicillins Unknown/Patient and Family Unable to Define Medium 06/16/2017 Medications Medication Sig Dispensed Refills Start Date End Date Status FLOVENT HFA 110 MCG/ACT inhaler 05/04/2017 Active lansoprazole (PREVACID) 30 MG capsule 05/04/2017 Active losartan-hydrochlorothiazide (HYZAAR) 100-12.5 MG per tablet 05/31/2017 Active metoPROLOL SUCCINATE (TOPROL-XL) 25 MG 24 hr tablet 05/04/2017 Active VIAGRA 100 MG tablet 08/21/2017 Acti ve Active Problems Problem Noted Date Diagnosed Date Protrusion of lumbar intervertebral disc 017 Lumbar radiculopathy, acute 07/01/2017 Essential hypertension 06/16/2017 Gastroesophageal reflux disease without esophagi tis 06/16/2017 Social History Tobacco Use Types Packs/Day Years [...] Sign Reading Time Taken Comments Blood Pressure 108/76 10/07/2017 1:37 PM EST Pulse 80 10/07/2017 1:37 PM EST Temperature 37.1 ??C (98.7 ??F) 10/07/2017 1:37 PM ES T Respiratory Rate 14 08/10/2017 9:52 AM EST Oxygen Saturation - - Inhaled Oxygen Concentration - - Weight 78 kg (172 lb) 09/02/2017 9:08 AM EST Height - - Body Mass Index - - Plan of Treatment Health Maintenance Due Date Last Done Comments Hepatitis C Virus Screening 1954 DTaP/Tdap/Td Vaccines (1 - Tdap) 1973 Colonoscopy 1999 Pneumococcal Vaccines 50+ (1 of 1 - PCV) 2004 Zoster (Shingles) Vaccine (1 of 2) 2004 Influenza Vaccine 04/28/2024 COVID-19 Vaccine (1 - 2023-2 5 season) 2024 RSV Vaccine 60 years and old er and Patients (1 - 1-dose 75+ series) 2029 Hepatitis B Vaccines Aged Out No long er eligible based on patient's age to complete this topic Care Teams Form Coverer Relationship Specialty Start Date End Date Pcp, No PCP - General General Medicine 06/11/17
--- OUTSIDE RECORDS SUMMARY | 2024-11-23 08:42 | XMS_ITS ---
Author Organization [facility] Address [address] [place] [address] Care Team Providers Care Dynamicist Name Role Phone Rufus RICHARDSON, Pio Primary Care Provider UnavailDavian Herrera Unavailable [phone] ALLERGIES Allergen (clinical drug ingredient) Drug/Non Drug Allergy documented on EMR Reaction Allergy Type Onset Date Status Substance with 3-bjustwg-7-methylgluta ryl-coenzyme A reductase inhibitor mechanism of action (substance) Statins Unknown Drug Allergy Active Penicillin Unknown Drug Allergy Active REASON FOR VISIT Patient presents today for a COLON SCREENING MEDICATIONS Medication SIG (Take, Route, Frequency, Duration) Notes Start Date End Date Status amLODIPine Besylate 5 MG Oral for 90 Active Metoprolol Succinate 25 MG 1 capsule Orally Once a day Active Flovent HFA 110 MCG/ACT 1 puff Inhalatio n Twice a day Active Clopidogrel Bisulfate 75 MG TAKE 1 TABLET BY MOUTH EVERY DAY DIRECTED Oral for 90 Active Omeprazole 20 MG Oral for 90 A ctive Allergy 24-HR 180 MG 1 tablet Swallow wh ole with water; do not take with fruit juices. Orally Once a day for 30 day(s) Active Vitamin C 1000 MG 1 tablet Orally twice a day Active Doxazosin Mesylate 8 MG Oral for 90 Active Magnesium 200 MG as directed Orally O nce at night Active Repatha SureClick 140 MG/ML INJECT 140 MG SUBCUTANEOUSLY EVERY 14 DAYS Subcutaneous for 84 Active SOCIAL HISTORY Tobacco Use: Social History Observation [...] W/U Status Risk SNOMED Code Notes Problem Chronic GERD (K21.9) Active confirmed Gastroesophagea l reflux disease (disorder) (381130635) Problem Personal history of adenomatous and serrated colon polyps (Z86.0101) Active confirmed VITAL SIGNS Blood pressure systolic 00 mm Hg 09/13/20 24 Blood pressure diastolic 00 mm Hg 024 Height 66 in 09/13/2024 Weight 170 lbs 09/13/2024 BMI 27.44 kg/m2 09/13/2024 Encounters Encounter Location Date Provider Diagnosis [facility] [address] [place] [address] 09/13/2024 Davian Ochoa Hx of adenomatous colonic [...] your neurologist, Dr. Hearn. PLAN OF TREATMENT Treatment Notes Assessment Notes Encounter for screening for malignant neoplasm of colon Stop Plavix(Clopidogrel) for three days before the colonoscopy and we will clear that with your neurologist, Dr. Hearn. Future Test Test Name Order Date COLONOSCOPY 09/13/2024 Next Appt Details Follow Up: prn, Reason: Provider Name:Davian Cassidy Ochoa , 01/02/2025 10:40:00 AM, [address] [place] [address] , [place], [place], [id number], Progress Notes * Examination Category Sub-Category Detail Notes General Examination GENERAL APPEARANCE: pleasant , well nourished, well developed, in no acute distress EYES: sclera non-icteric NECK/THYROID: no cervical lymphade nopathy, neck supple HEART: S1, S2 normal LUNGS: clear to auscultatio n bilaterally ABDOMEN: normal bowel sounds, no guarding or rigidity, no hepatosplenomegaly, no masses palpable, soft, nontender, nondistended. NEUROLOGIC: alert and oriented SKIN: nonjaundiced, no spi alfa angiomata. EXTREMITIES: no edema ORAL CAVITY: mucosa moist
--- OUTSIDE RECORDS SUMMARY | 2024-11-23 08:42 | XMS_ITS | Encounter Summary ---
Author Organization [facility] Address [address] [place] [address] Care Team Providers Care Warehouse Processor Name Role Phone Pcp, No Primary Care Provider Unavailabl e Encounter Details Date Type Department Care Team (Late st Contact Info) Description 09/02/2017 Scanned Document [address] [phone] Provider, Generic Social History Tobacco Use Types [...] Procedure Name Priority Date/Time Associated Diagnosis Comments XRAY EXTERNAL RESULT 09/02/2017 documented in this encounter Results * XRAY EXTERNAL RESULT (09/02/2017) Anatomical Region Laterality Modality Computed Radiogr aphy Narrative 09/02/2017 Ordered by an unspecified provider. Generic Provider IMG DIAGNOSTIC IMAGI NG ORDERABLES documented in this encounter Visit Diagnoses Not on filedocumented in this encounter Care Teams Warehouse Processor Relationship Specialty Start Date End Date Pcp, No PCP - General General Medicine 06/11/17 documented as of this encounter
[2024-12-29 13:35] VITALS: BMI 27.4
[2024-12-29 14:07] VITALS: BMI 27.4
--- NOTE | 2024-12-30 09:33 | HO.ANESPROP2 ---
HPI - Anesthesia Eval Consult details Narrative: 69yo M for Upper Endoscopy and Colonoscopy [facility] Past Medical History Medical History (Updated 12/29/24 @ 14:14 by Kaia Caldwell, RN) History of CVA (cerebrovascular accident) (~2020) Renal calculi CECELIA on CPAP HTN (hypertension) Asthma Anxiety HLD (hyperlipidemia) GERD (gastroesophageal reflux disease) Surgical History Surgical History (Updated 12/29/24 @ 14:14 by Kaia Caldwell, RN) History of left-sided carotid endarterectomy (2021) Hx of colonoscopy History of esophagogastroduodenoscopy (EGD) Social History Social History (Updated 12/29/24 @ 14:11 by Kaia Caldwell, RN) Household Members: Spouse Housing: House Are you a primary multi care technician to a significant other at home: No Do you presently have visiting nurse or other home services: No Patient Tobacco Use Status: Former Tobacco user Tobacco use type: Cigarette Use of substances other than those prescribed or required for medical reasons: No Meds Allergies Allergy/AdvReac Type Severity Reaction Status Date / Time penicillin V Allergy Severe anaphylaxis Verified 12/29/24 13:59 trazodone Allergy Severe lethargy Verified 12/29/24 13:59 zolpidem [Ambien] Allergy Severe lethargy Verified 12/29/24 13:59 Tyjgdwq-TZI-SnR Reductase Allergy Intermediate Muscle Verified 12/29/24 14:04 Inhibitor cramps amlodipine Allergy Unknown palpitation Verified 12/29/24 13:59 s Home Medications ?Medication ?Instructions ?Recorded ?Confirmed ?Last Taken ?Type albuterol sulfate 90 mcg/actuation 2 puff inhalation Q4H PRN 12/29/24 12/29/24 Unknown History aerosol inhaler Shortness Of Breath Or Wheezing amlodipine 5 mg tablet 5 mg PO QAM 12/29/24 12/29/24 Unknown History clopidogrel 75 mg tablet 75 mg PO DAILY 12/29/24 12/29/24 Unknown History doxazosin 8 mg tablet 8 mg PO BEDTIME 12/29/24 12/29/24 Unknown History evolocumab 140 mg/mL subcutaneous 140 mg subcut Q2W 12/29/24 12/29/24 Unknown History pen injector (athcamilo Monte) fluticasone propionate 110 1 puff inhalation BID 12/29/24 12/29/24 Unknown History mcg/actuation HFA aerosol inhaler magnesium 200 mg tablet 400 mg PO DAILY 12/29/24 12/29/24 Unknown History metoprolol succinate 25 mg 25 mg PO DAILY 12/29/24 12/29/24 Unknown History tablet,extended release 24 hr multivitamin 1 tab PO DAILY 12/29/24 12/29/24 12/25/24 History omeprazole 20 mg capsule,delayed 20 mg PO BID 12/29/24 12/29/24 Unknown History release Exam Height,Weight and Vital Signs: Height 5 ft 6 in Weight 77.111 kg Assessment and Plan Assessment Anesthesia Assessment: Chart Reviewed
[2025-01-02 10:06] VITALS: BP 154/76; PULSE 54; RESP 16; TEMP 36.6; O2SAT 96; BMI 27.0
--- NOTE | 2025-01-02 10:11 | HO.ANESPROP2 ---
[facility] Past Medical History Medical History History of CVA (cerebrovascular accident) (~2020) Renal calculi CECELIA on CPAP HTN (hypertension) Asthma Anxiety HLD (hyperlipidemia) GERD (gastroesophageal reflux disease) Functional capacity: independent ambulation Family History Family history of problems with anesthesia: No Surgical History Surgical History History of left-sided carotid endarterectomy (2021) Hx of colonoscopy History of esophagogastroduodenoscopy (EGD) History of Problems with Anesthesia: No Social History Social History Household Members: Spouse Housing: House Are you a primary customer care assistant to a significant other at home: No Do you presently have visiting nurse or other home services: No Patient Tobacco Use Status: Former Tobacco user Tobacco use type: Cigarette Smoked in Last 30 Days: No Use of substances other than those prescribed or required for medical reasons: No Have you been hit, kicked, punched, or otherwise hurt by someone within the past year? If so, by whom?: No Are you DNR?: No Advance Directives: No (rose look for and bring dos) Advance Directives Information Provided: Yes Advance Directives on File: No Poor oral hygiene: No Meds Allergies Allergy/AdvReac Type Severity Reaction Status Date / Time penicillin V Allergy Severe anaphylaxis Verified 01/02/25 10:03 trazodone Allergy Severe lethargy Verified 01/02/25 10:03 zolpidem [Ambien] Allergy Severe lethargy Verified 01/02/25 10:03 Zuwndrw-XBH-AqE Reductase Allergy Intermediate Muscle Verified 01/02/25 10:03 Inhibitor cramps amlodipine Allergy Unknown palpitation Verified 01/02/25 10:03 s Active Medications: Current Medications Albuterol Sulfate (Albuterol Sulfate (0.083%) 2.5 Mg/3 Ml Vial.Neb) 2.5 mg INHALE ONCE PRN PRN Reason: Shortness of Breath/Wheezing Lactated Ringer's (Lr) 1,000 mls @ 100 mls/hr IVCONT .Q10H HEMALATHA Sodium Biphosphate/Sodium Phosphate (Sodium Phosphate,Sawyer-Dibasic 133 Ml Enema) 133 ml MT ONCE PRN PRN Reason: Poor Colonoscopy Prep Results Home Medications ?Medication ?Instructions ?Recorded ?Confirmed ?Last Taken ?Type albuterol sulfate 90 mcg/actuation 2 puff inhalation Q4H PRN 12/29/24 01/02/25 Unknown History aerosol inhaler Shortness Of Breath Or Wheezing amlodipine 5 mg tablet 5 mg PO QAM 12/29/24 12/29/24 01/02/25 History clopidogrel 75 mg tablet 75 mg PO DAILY 12/29/24 01/02/25 12/30/24 History doxazosin 8 mg tablet 8 mg PO BEDTIME 12/29/24 01/02/25 Unknown History evolocumab 140 mg/mL subcutaneous 140 mg subcut Q2W 12/29/24 01/02/25 Unknown History pen injector (Fracisco Monte) fluticasone propionate 110 1 puff inhalation BID 12/29/24 12/29/24 01/02/25 History mcg/actuation HFA aerosol inhaler magnesium 200 mg tablet 400 mg PO DAILY 12/29/24 01/02/25 Unknown History metoprolol succinate 25 mg 25 mg PO DAILY 12/29/24 12/29/24 01/02/25 History tablet,extended release 24 hr multivitamin 1 tab PO DAILY 12/29/24 01/02/25 12/25/24 History omeprazole 20 mg capsule,delayed 20 mg PO BID 12/29/24 12/29/24 01/02/25 History release Exam Height,Weight and Vital Signs: Height 5 ft 6 in Weight 77.111 kg Airway Mallampati Class: III TM Dist: >3cm Neck ROM: Full Heart: RRR Lungs: TA Assessment and Plan Assessment Anesthesia Assessment: Chart Reviewed Final Anesthetic Review Family History of Problems with Anesthesia: No History of Problems with Anesthesia: No NPO: Yes ASA Class: III Final Preanesthetic Review: Meds/Allgs Chart Reviewed, Consent Obtained/Reviewed and Anes Risks/Benef Reviewed Patient Risk: Low Procedure Risk: Low Anesthetic Plan Anesthetic Plan: MAC: Disposition: Standard PACU
[2025-01-02] MEDS: Lactated Ringers 1,000 ML 100 ML IVCONT (10:26)
[2025-01-02 11:50] VITALS: BP 113/53; PULSE 50; RESP 16; TEMP 36.2; O2SAT 93
--- NOTE | 2025-01-02 11:53 | P.BOP_ITS ---
Brief Operative Note Date of Service: 01/02/25 Pre-op diagnosis: Screening Post-op diagnosis: other (Polyp) Procedure: Colonoscopy to the cecum with hot snare polypectomy x 1 with placement of 2 Resolution clips Surgeon: Davian Ochoa MD Anesthesia: MAC Was an Director Account Management used for this Procedure?: No Estimated blood loss (mL): 0 Pathology: other (A. Polyp at 60cm) Condition: stable Disposition: PACU
[2025-01-02 12:05] VITALS: BP 116/61; PULSE 60; RESP 16; O2SAT 94
[2025-01-02 12:20] VITALS: BP 118/67; PULSE 51; RESP 18; TEMP 36.6; O2SAT 95
--- NOTE | 2025-01-02 13:46 | OP_ITS ---
DATE OF SERVICE: 01/02/2025 SURGEON: Davian Ochoa MD INDICATIONS: The patient presents for evaluation of personal history of tubular adenoma of the colon and need for colorectal cancer screening. Full consent obtained from him for this, including risks of bleeding and perforation. PREOPERATIVE DIAGNOSIS: POSTOPERATIVE DIAGNOSIS: PROCEDURE PERFORMED: Colonoscopy to cecum with hot snare polypectomy x1 with placement of 2 Resolution clips. ESTIMATED BLOOD LOSS: COMPLICATIONS: ANESTHESIA: Monitored anesthesia care. ASSISTANTS: SPECIMENS: PREOPERATIVE DIAGNOSES: Colorectal cancer screening and personal history of tubular adenoma of the colon. POSTOPERATIVE DIAGNOSES: Colon polyp, diverticulosis, and internal hemorrhoids. DESCRIPTION OF PROCEDURE: The patient was placed in left lateral decubitus position. The digital rectal exam revealed no abnormalities. The Olympus video pediatric colonoscope was entered into the rectum and advanced easily to the cecum. Once in the cecum, I did identify normal appearing cecal pouch with appendiceal orifice and a normal-appearing ileocecal valve. There was transillumination of light deep in the right lower quadrant. The entire cecum and ileocecal valve appeared normal. The scope was slowly withdrawn assessing all mucosal surfaces carefully. Preparation was excellent after a lot of suctioning and irrigating. At 60 cm, it was an approximately 10 to 12 mm polyp on a short stalk which was removed by hot snare polypectomy and then recovered by suction. The polypectomy site appeared clean, without any sign of residual polyp nor bleeding. I did place 2 Resolution clips onto the polypectomy site with good deployment and good hemostasis. I did not visualize any other polyps, colitis, nor angiodysplasia. There was a moderate amount of sigmoid diverticulosis. In the rectum, scope was retroflexed, visualizing internal hemorrhoids, but no other pathology. The rectal mucosa appeared normal. The scope was straightened and withdrawn from the patient. He tolerated the procedure well and was returned to recovery area in stable condition. IMPRESSION: 1. Colon polyp. 2. Diverticulosis. 3. Internal hemorrhoids. PLAN: The results of the pathology will be checked. I would recommend a repeat colonoscopy in 5 years. He was advised to resume his clopidogrel in 72 hours. He was advised not to use any aspirin or NSAIDs for at least 1 week, but ideally to avoid those long-term while he is on the clopidogrel. He will otherwise see me on a p.r.n. basis. This has been discussed with his . MD QUE [place]/ZEKE / [phone]
--- NOTE | 2025-01-02 13:47 | HO.POSTANES ---
Post Anesthesia Evaluation Post Anesthesia Evaluation Date of Service: 01/02/25 Vital Signs: Vital Signs Temp Pulse Resp BP Pulse Ox O2 Del Method 01/02/25 12:20 98 F 51 18 118/67 95 Room Air 01/02/25 12:05 60 16 116/61 94 Room Air 01/02/25 11:50 97.1 F 50 16 113/53 L 93 Room Air 01/02/25 10:06 97.8 F 54 16 154/76 H 96 Anesthesia: Monitored Mental Status: Awake Pain Control: Satisfactory Nausea/Vomiting: None Hydration: Adequate Anesthesia-Related Issues: No Anes. Related Issues
== END 2025-01-02 12:45 | disposition home or self-care (01) ==
PROVIDERS: PCP Family Medicine; Visit Provider Internal Medicine
PROC: 0DJD8ZZ Inspection of Lower Intestinal Tract, Via Natural or Artificial Opening Endoscopic (ICD-10-PCS; CPT 45378; principal; 2025-01-02 10:30)
DX: Z12.11 Encounter for screening for malignant neoplasm of colon (principal); Z86.0101 Personal history of adenomatous and serrated colon polyps; D12.4 Benign neoplasm of descending colon; K57.30 Diverticulosis of large intestine without perforation or abscess without bleeding; K64.8 Other hemorrhoids; K21.00 Gastro-esophageal reflux disease with esophagitis, without bleeding; I69.311 Memory deficit following cerebral infarction; I69.328 Other speech and language deficits following cerebral infarction; I10 Essential (primary) hypertension; E78.5 Hyperlipidemia, unspecified; J45.909 Unspecified asthma, uncomplicated; N20.0 Calculus of kidney; G47.33 Obstructive sleep apnea (adult) (pediatric); F41.9 Anxiety disorder, unspecified; Z79.899 Other long term (current) drug therapy; Z87.891 Personal history of nicotine dependence
CPT/HCPCS: 45385; 88305; J2003; J2704

== ENCOUNTER 2025-02-28 08:51 | Outpatient (AMB) | payer MEDICARE, SELFPAY ==
--- NOTE | 2025-02-28 09:10 | A.OFFVIS_ITS ---
Intake Visit Reasons: BPH/ nocturia Intake Note: New Patient presents for initial visit for BPH and nocturia Urology Medications: none Blood Thinner: none PVR: 0ml's Comic Artist Required: No Accompanied by: Self / Same As Patient Allergies penicillin V Allergy (Severe, Verified 02/28/25 09:44) anaphylaxis trazodone Allergy (Severe, Verified 02/28/25 09:44) lethargy zolpidem [Ambien] Allergy (Severe, Verified 02/28/25 09:44) lethargy Hoatdek-HIY-VjL Reductase Inhibitor Allergy (Intermediate, Verified 02/28/25 09:44) Muscle cramps Medication List - Last Reconciled 02/28/25 by TIARA Baxter- albuterol sulfate 90 mcg/actuation 2 puffs inhalation Q4H PRN amlodipine 5 mg PO QAM clopidogrel 75 mg PO DAILY evolocumab (Repatha SureClick) 140 mg subcut Q2W fluticasone propionate 110 mcg/actuation 1 puff inhalation BID magnesium 400 mg PO DAILY metoprolol succinate ER 25 mg PO DAILY multivitamin 1 tab PO DAILY omeprazole 20 mg PO BID HPI Comments Details: Yousuf Saleh is a very pleasant 69-year-old male patient of Dr. Hooper. He has a past medical history of CVA, nephrolithiasis, obstructive sleep apnea on CPAP, hypertension, asthma, anxiety, hyperlipidemia, and GERD. He presents to the office today as a new patient for his longstanding history of lower urinary tract symptoms. In discussion with the patient today he reports having followed up with Dr. Dunne many years ago for his history of nephrolithiasis as well as lower urinary tract symptoms. He discusses having had a previous ESWL as well as a prostate procedure that he did not find helpful. In review of previous medical records it appears patient underwent left-sided ESWL 08/30. He reports having followed up with his PCP and has been on 8 mg of doxazosin at and has not found this helpful. He reports feelings of incomplete bladder emptying, weak urinary flow and episodes of nocturia. He does report being compliant with CPAP for his sleep apnea. He also discusses bathroom planning. In review of patient's chart it appears PSA 11/21 0.5. We discussed potential causes of these lower urinary tract symptoms as well as further treatment options and risks and benefits of these treatment options. In office urinalysis results reviewed with the patient today. PVR 0 mL. He denies hematuria, dysuria, foul smelling urine, flank pain, fever, and or chills. We discussed obtaining retroperitoneal ultrasound and PSA for further assessment evaluation. He otherwise offers no other issues or concerns at this time. History of Present Illness The patient is a 69-year-old male presenting with urinary symptoms including nocturia, weak stream, and sensation of incomplete bladder emptying. These symptoms have been ongoing for many years and began before the patient's stroke four years ago. The nocturnal urination persists despite the use of a CPAP device, indicating compliance with current sleep apnea management. He has been on doxazosin without symptom relief but noted an increase in hypertension symptoms upon cessation. Past interventions include a TURP 25 years ago, which failed to alleviate symptoms, and led to retrograde ejaculation. Plan An ultrasound of the kidneys and bladder will evaluate the prostate's size, supporting further management decisions. Discussion covers potential procedural evaluations such as cystoscopy and or in office urodynamics should symptoms persist. Lifestyle adjustments, including fluid management, complement pharmacotherapy. Patient was informed and verbally consented to the use of an ambient scribe for clinic note documentation during this visit. Discussion Notes I discussed with the patient the diagnosis of benign prostatic hyperplasia and the plan to switch to terazosin from doxazosin, detailing the rationale and expected benefits. Consent for diagnostic ultrasound and further treatment steps was obtained. I informed the patient of the potential for cystoscopy and or in office urodynamics for further assessment evaluation. Follow-up on medication efficacy and side effects will guide therapy adjustments. [facility] Medical History History of CVA (cerebrovascular accident) (~2020) Renal calculi CECELIA on CPAP HTN (hypertension) Asthma Anxiety HLD (hyperlipidemia) GERD (gastroesophageal reflux disease) Surgical History History of left-sided carotid endarterectomy (2021) Hx of colonoscopy History of esophagogastroduodenoscopy (EGD) Social History Household Members: Spouse Housing: House Are you a primary workforce investment act career manager to a significant other at home: No Do you presently have visiting nurse or other home services: No Patient Tobacco Use Status: Former Tobacco user Tobacco use type: Cigarette Review of Systems Const All systems reviewed & are unremarkable except as noted in HPI and below Physical Exam Const General: cooperative, healthy appearing, comfortable, no acute distress, well developed, alert and awake Orientation/consciousness: patient oriented x3 Limitations: other limitations (Aphasia) HEENT Head: Yes normal to inspection, Yes normocephalic and Yes atraumatic Ears: hearing grossly normal bilaterally Eyes General: appearance normal, both eyes and all related structures Neck Neck: Yes normal visual inspection and Yes trachea midline Chest Chest palpation & inspection: normal inspection of the chest Resp Effort & Inspection: normal respiratory effort and able to speak in complete sentences Cardio Rate: regular rate GI Inspection: Yes normal to inspection General: Yes no CVA tenderness Back/Spine/Pelvis Back: no CVA tenderness Skin General skin exam: no rashes or lesions noted Neuro General: patient oriented x3 Extrem General: Yes normal to inspection Psych Appearance: grossly normal and well kempt Mental Status: mental status grossly normal Speech and movement: Clear speech present and Slowed speech present (Psych) Affect: normal affect Attitude: cooperative Thought process: Normal thought process present Thought content: Normal thought content present Insight: Fair insight present (Psych) Judgement: Fair judgement present (Psych) Office Procedures Post Void Residual Post Residual Void Post Void Residual (PVR): 0 45538-Hczg Void Residual by ultrasound Results AMB Urinalysis, Automated UA Leukoctes 0 Latoya/uL Last Edit by CALIXTO Reyes on 02/28/25 15:14 UA Nitrite Negative Last Edit by CALIXTO Reyes on 02/28/25 15:14 UA Urobilinogen 0.2 mg/dL Last Edit by CALIXTO Reyes on 02/28/25 15:1 4 UA Protein 0 mg/dL Last Edit by CALIXTO Reyes on 02/28/25 15:14 UA pH 6.0 Last Edit by Teresonaheed Mcbrideparrish [facility] on 02/28/25 15:14 UA Blood 0 Cam/uL Last Edit by Morelia Raeparrish [facility] on 02/28/25 15:14 UA Specific [place] 1.005 Last Edit by Morelia Cuba, [facility] on 02/28/25 15: 14 UA Ketone Negative Last Edit by Morelia Raeparrish, [facility] on 02/28/25 15:14 UA Bilirubin 0 mg/dL Last Edit by Morelia Raeparrish [facility] on 02/28/25 15:14 UA Glucose 0 mg/dL Last Edit by Morelia Raeparrish, [facility] on 02/28/25 15:14 Results Reviewed Results Reviewed: Laboratory Last Values Urine pH (Auto) 6.0 02/28/25 09:21 Specific [place] (Auto) 1.005 02/28/25 09:21 Urine Protein (Auto) 0 mg/dL 02/28/25 09:21 Glucose (UA)(Auto) 0 mg/dL 02/28/25 09:21 Urine Ketones (Auto) Negative 02/28/25 09:21 Urine Blood (Auto) 0 Cam/uL 02/28/25 09:21 Urine Nitrite (Auto) Negative 02/28/25 09:21 Urine Bilirubin (Auto) 0 mg/dL 02/28/25 09:21 Urine Urobilinogen (Auto) 0.2 mg/dL 02/28/25 09:21 Leukocyte Esterase (Auto) 0 Latoya/uL 02/28/25 09:21 Assessment & Plan Assessment & Plan (1) Nocturia: Code(s): R35.1 - Nocturia Category: Medical (2) Weak urine stream: Code(s): R39.12 - Poor urinary stream Category: Medical (3) Feeling of incomplete bladder emptying: Code(s): R39.14 - Feeling of incomplete bladder emptying Category: Medical Plan In office urinalysis results with the patient today; as noted above. PVR 0 mL. Will obtain retroperitoneal ultrasound for further assessment evaluation. Will obtain PSA for further assessment evaluation. We discussed potential causes of lower urinary tract symptoms patient is experiencing as well as further treatment options and risks and benefits of these treatment options. Stop doxazosin Start terazosin as discussed and prescribed We discussed potential near future in office cystoscopy and or urodynamics for further assessment evaluation. We discussed the importance of limiting fluids 2-3 hours prior to bed to decrease episodes of nocturia. Follow-up in 1-3 months with imaging, PSA, and PVR; or sooner with any issues, concerns, and or questions. Orders: Orders AMB Urinalysis Automated Today Z13.9 - Encounter for screening, unspecified AMB Post Void Residual by ultrasound Today Z13.9 - Encounter for screening, unspecified US retroperitoneal comp Today R35.1 - Nocturia, R39.12 - Poor urinary stream, R39.14 - Feeling of incomplete bladder emptying Prostate Specific Antigen Today R35.1 - Nocturia, R39.12 - Poor urinary stream, R39.14 - Feeling of incomplete bladder emptying Medications: New terazosin 5 mg PO BEDTIME 30 caps 3RF 30 days N40.1 - Benign prostatic hyperplasia with lower urinary tract symptoms, R35.0 - Frequency of micturition Patient Instructions: The patient had an opportunity to ask questions regarding the treatment plan. All questions were answered. Physical exam, labs, and imaging were discussed and reviewed in detail. As well as risks, benefits, and discussion of treatment choices. No major barriers to understanding were identified. The patient expressed understanding and agreement with the above treatment plan. The patient was made aware they should contact our office by phone for worsening of their current condition, the appearance of new symptoms, or with any questions or concerns. Compliance is encouraged with any medications and follow up testing that is ordered. It is a privilege to be allowed the opportunity to participate in? your urological care.? Again, if you have any questions or concerns If you have any questions or concerns please do not hesitate to contact me. The office is [phone]. This note is constructed using voice recognition software. While every effort has been made to ensure accuracy nurse clinical errors may have been included. Yours sincerely, BRANDON Baxter Coding Level of Care Code New Pt Level 4 (17629) Diagnoses Nocturia R35.1 Weak urine stream R39.12 Feeling of incomplete bladder emptying R39.14 CPT Codes Post Residual Void - PVR CPT Code: 67510-Jwhw Void Residual by ultrasound ([id number])
--- OUTSIDE RECORDS SUMMARY | 2025-02-28 09:28 | XMS_ITS | Patient Health Record ---
Author Organization [facility] Address [address] [place] [address] Care Team Providers Care Seat Maker Name Role Phone Rufus RICHARDSON, Pio Primary Care Provider Unavailab Davian Tripp Unavailable [phone] Allergies Allergen (clinical drug ingredient) Drug/Non Drug Allergy documented on EMR Reaction Allergy Type Onset Date Status Substance with 9-yzbmrzo-2-methylgluta ryl-coenzyme A reductase inhibitor mechanism of action (substance) Statins Unknown Drug Allergy Active Penicillin Unknown Drug Allergy Active Results Component Value Reference Range Notes Pathology (Not yet reviewed by provider) Interpretation: Performing Lab:[facility], [address] [place] [phone] Notes/Report: Name: Martín Pires Age/Sex: 69/M : 1955 Unit#: [id number] Attend Dr: Davian Ochoa MD Re01/02/25 Status : [facility] Location: [facility] Disch: SPEC : [id number] RECD : 01/02/25 STATUS: STEVE ZHANG NUM: [id number] GOLDEN: 01/02/25-[address] [facility] [address]: Davian Ochoa MD ENTERED: 01/02/25-12 20 SP TYPE: Surgical OTHR DR: Pio Hooper MD ORDERED: HE Stain/3 , Gross Micro L4 Diagnosis Colon, 60 cm, polype ctomy: Tubular adenoma; negative for high-grade dysplasia or carcinoma. Clinical History Pre-Op Dx: Screening Post-Op Dx: Colon po lyp, hemorrhoids, diverticulosis Microscopic Description Microscopic sections reviewed. Material Received Polyp at 60 cm Gross Description Received in formalin labeled polyp at 60 cm? is a 1.2 x 0.4 x 0.35 cm edematous and erythematous fisher-pin k and red-maroon polypoid portion of tissue. The resected base is inked and the specimen is bisected and entirely submitted in a cassette labeled A. CEDS Copies To: Pio Hooper MD [address] [place] [address] [address] [place], [place] [id number] Davian Ochoa MD [address] [place] [address] Signed (si gnature on file) Dom George MD 01/03/25 1144 END OF REPORT Reason For Referral No Information Medications Medication [...] Problem Status W/U Status Risk Notes Problem 261134322 Encounter for screening for malignant neoplasm of colon (Z12.11) Active confirmed Problem 590325271 Gastroesophageal reflux disease with esophagitis (K21.0) Active confirmed Problem 294295448 Hx of adenomatou s colonic polyps (Z86.010) Active confirmed Problem Gastroesophageal reflux disease (disorder) (415701854) Chronic GERD (K21.9) Active confirmed Problem Personal history of adenomatous and serrated colon polyps (Z86.0101) Active confirmed Vital Signs Blood pressure diastolic 00 mm Hg 09/13/2024 Height 66 in 09/13/2024 Blood pressure systolic 00 mm Hg 09/13/2024 Weight 170 lbs 09/13/2024 BMI 27.44 kg/m2 09/13/2024 Encounters Encounter Location Date Provider Diagnosis [facility] Outpatient [address] [place], [place] [phone] 01/02/2025 Davian Ochoa Colon cancer screeni ng Z12.11 ; Personal history of colonic polyps Z86.0100 ; Colon polyps K63.5 and Diverticulosis of large intestine without perforation or abscess without bleeding K57.30 [facility] [address] [place] [address] 09/13/2024 Davian Ochoa Hx of adenomatous colonic polyps Z86.010 ; Chronic GERD K21.9 and Encounter for screening for malignant neoplasm of colon Z12.11 Assessments Encounter Date Diagnosis (ICD Code) Assessment Notes Treatment Notes Treatment Clinical Notes Section Notes 01/02/2025 Colon cancer screening (ICD-10 - Z12.11) 01/02/2025 Personal history of colonic polyps (ICD-10 - Z86.0100) 09/13/2024 Hx of adenomatous colonic polyps (ICD-10 [...] we shall clear that with his neurologist. Delifno was comfortable with this plan. Thank you [...] to keep you advised of his progress. 01/02/2025 Colon polyps (ICD-10 - K63.5) 09/13/2024 Encounter for screening for malignant neoplasm of colon (ICD-10 - Z12.11) Stop Plavix(Clopido grel) for three days before the colonoscopy and [...] to keep you advised of his progress. 01/02/2025 Diverticulosis of large intestine without perforation or abscess without bleeding (ICD-10 - K57.30) Plan Of Treatment Pending Test Test Name Order Date Pathology 01/02/2025 Future Test Test Name Order Date COLONOSCOPY 11/08/2013 UPPER GI ENDOSCOPY 10/27/2018 COLONOSCOPY 10/27/2018 COLONOSCOPY 09/13/2024 Insurance Providers Payer Name Payer Address Payer Phone Subscriber Number Group Number Insured Name Patient Relationship to Insured Coverage Start Date Coverage End Date [facility] [address] [place] [address] [phone] [id number] MARTÍN PIRES Self - patient is the insured Medical (General) History Medical History History ICD Code GERD-EGD's in 1998, 2007, an d 11-14-2008--reflux esophagitis--small to mod-sized HH---no [facility] Colonoscopy 07-17-2006--1 small tubular adenoma removed Hyperlipidemia Anxiety Asthma Denies [place],DM,renal disease Neg. colonoscopy in 04/2014 e xcept [...]
== END 2025-02-28 09:55 | disposition home or self-care (01) ==
LOC: HO.HUSH 08:51
PROVIDERS: PCP Family Medicine; Visit Provider Nurse Practitioner Family
DX: R35.1 Nocturia (principal); R39.12 Poor urinary stream; R39.14 Feeling of incomplete bladder emptying; Z13.9 Encounter for screening, unspecified
CPT/HCPCS: 99204

== ENCOUNTER → 2025-02-28 08:51 | Outpatient (BNVA) | payer MEDICARE, SELFPAY | PROVIDERS: PCP Family Medicine; Visit Provider Nurse Practitioner Family | DX: R35.1 Nocturia (principal); R39.12 Poor urinary stream; R39.14 Feeling of incomplete bladder emptying | CPT/HCPCS: 51798; 81003; 99202 ==

== ENCOUNTER 2025-04-24 09:28 | Outpatient (REF) | payer MEDICARE, SELFPAY ==
--- OUTSIDE RECORDS SUMMARY | 2025-04-24 10:18 | XMS_ITS | Patient Health Record ---
Author Organization [facility] Address [address] [place] [address] Care Team Providers Care De Alcoholizer Name Role Phone Rufus (RETIRED) Pio RICHARDSON Primary Care Provider Unavailable Davian Ochoa Unavailable [phone] Allergies Allergen (clinical drug ingredient) Drug/Non Drug Allergy documented on EMR Reaction Allergy Type Onset Date Status Substance with 8-yehxdzq-5-methylgluta ryl-coenzyme A reductase inhibitor mechanism of action (substance) Statins Unknown Drug Allergy Active Penicillin Unknown Drug Allergy Active Results Component Value Reference Range Notes Pathology (Not yet reviewed by provider) Interpretation: Performing Lab:[facility], [address] [place] [phone] Notes/Report: Reason For Referral No Information Medications Medication [...] Problem Status W/U Status Risk Notes Problem 215813976 Encounter for screening for malignant neoplasm of colon (Z12.11) Active confirmed Problem 420305782 Gastroesophageal reflux disease with esophagitis (K21.0) Active confirmed Problem 304840124 Hx of adenomatou s colonic polyps (Z86.010) Active confirmed Problem Gastroesophageal reflux disease (disorder) (261047814) Chronic GERD (K21.9) Active confirmed Problem Personal history of adenomatous and serrated colon polyps (Z86.0101) Active confirmed Vital Signs Blood pressure diastolic 00 mm Hg 09/13/2024 Height 66 in 09/13/2024 Blood pressure systolic 00 mm Hg 09/13/2024 Weight 170 lbs 09/13/2024 BMI 27.44 kg/m2 09/13/2024 Encounters Encounter Location Date Provider Diagnosis [facility] Outpatient [address] [place], [place] [phone] 01/02/2025 Davian Ochoa Colon cancer screeni ng Z12.11 ; Personal history of colonic polyps Z86.0100 ; Colon polyps K63.5 and Diverticulosis of large intestine without perforation or abscess without bleeding K57.30 [facility] [address] [place] [address] 09/13/2024 Davian Ochoa Hx of adenomatous colonic [...] Insured Coverage Start Date Coverage End Date [facility] [address] [place] [address] [id number] MARTÍN PIRES Self - patient is the insured Medical (General) History Medical History History ICD Code GERD-EGD's in 1998, 2007, an d 11-14-2008--reflux esophagitis--small to mod-sized HH---no [facility] Colonoscopy 07-17-2006--1 small tubular adenoma removed Hyperlipidemia Anxiety Asthma Denies [place],DM,renal disease Neg. colonoscopy in 04/2014 e xcept [...]
--- OUTSIDE RECORDS SUMMARY | 2025-04-24 10:18 | XMS_ITS | Clinical Summary ---
Author Organization [facility] Address [address] [place] [address] Care Team Providers Care Transfusion Nurse Name Role Phone Pio Hooper MD Primary Care Provider [phone] Social History Tobacco Use Types Packs/Day Years [...] 1 - PCV) 2019 Influenza Vaccine (#1) 2025 RSV Adult > 60+ Yrs or Pregn ant (1 - 1-dose 75+ series) 2029 Hepatitis B Vaccines Aged Out No long er eligible based on patient's age to complete this topic RSV Ped < 20 months Aged Out No longe r eligible based on patient's age to complete this topic Care Teams Transfusion Nurse Relationship Specialty Start Date End Date Pio Hooper MD [address] [place] [address] [place] [address] PCP - General Internal Medicine 09/07/17
--- OUTSIDE RECORDS SUMMARY | 2025-04-24 10:18 | XMS_ITS | Encounter Summary ---
Author Organization [facility] Address [address] [place] [address] Care Team Providers Care Stonecutter Hand Name Role Phone Pcp, No Primary Care Provider Unavailabl e Encounter Details Date Type Department Care Team (Late st Contact Info) Description 09/07/2017 Scanned Document [address] [address] Provider, Generic Social History Tobacco Use Types Packs/Day Years Used Date Smoking Tobacco: Former Smokeless Tobacco: Never Alcohol Use Standard Drinks/Week Comments Yes 0 (1 standard drink = 0.6 oz pur e alcohol) rare social Sex and Gender Information Value Date Recorded Sex Assigned at Not on file Legal Sex Male 2:14 PM EDT Gender Identity Not on file Sexual Orientation Not on file documented as of this encounter Plan of Treatment Not on file documented as of this encounter Procedures Procedure Name Priority Date/Time Associated Diagnosis Comments MRI EXTERNAL RESULT 09/07/2017 documented in this encounter Results * MRI EXTERNAL RESULT (09/07/2017) Anatomical Region Laterality Modality Magnetic Resonan ce Narrative 09/07/2017 Ordered by an unspecified provider. us Generic Provider IMG MRI ORDERABLES Edited Resul t - Final documented in this encounter Visit Diagnoses Not on filedocumented in this encounter Care Teams Stonecutter Hand Relationship Specialty Start Date End Date Pcp, No PCP - General General Medicine 06/11/17 documented as of this encounter
--- OUTSIDE RECORDS SUMMARY | 2025-04-24 10:18 | XMS_ITS ---
Author Name [facility] Organization Unknown Encounters Encounter Type Encounter Reason Primary Diagnosis Location Date Ambulatory Spinal stenosis, lumbar region without neurogenic claudication [facility] 10/24/2021 Care Team Organization Name Specialty Phone Email Start Date End Da te [facility] PCP,No Primary Care 10/24/2021 [facility] BEN CELESTIN Primary Care 10/24/2021
--- OUTSIDE RECORDS SUMMARY | 2025-04-24 10:18 | XMS_ITS | Clinical Summary ---
Author Organization [facility] Address [address] [place] [address] Care Team Providers Care Pharmacy Retail Support Specialist Name Role Phone Pio Hooper Primary Care Provider [phone] Allergies Active Allergy Reactions Criticality Noted Date [...] 50 03/13/2021 10:21 AM EDT Temperature 36.3 C (97.4 F) 03/13/2021 9:41 AM EDT Respiratory Rate 16 03/13/2021 10:21 AM EDT [...] season) 2024 12/22/2020, 11/30/2020 Influenza Vaccine (#1) 2025 06/17/2019 HPV Vaccines Aged Out No longer eligi ble based on patient's age to complete this topic Hepatitis A Vaccines Aged Out No long er eligible based on patient's age to complete this topic Meningococcal Vaccine Aged Out No po veronika eligible based on patient's age to complete this topic Insurance AIG Advance Directives For more information, please contact: [phone] Documents on File Type Date Recorded Patient Food Service Specialist Expl anation Advance Directives 07/23/2018 1:19 PM Care Teams Pharmacy Retail Support Specialist Relationship Specialty Start Date End Date Pio Hooper [address] [place] [phone] PCP - General 10/24/21
[2025-04-24 10:59] LABS: Prostate Specific Antigen 1.04 ng/mL (<0.05-4.0)
== END 2025-04-24 09:29 | disposition home or self-care (01) ==
LOC: HO.LAB 09:28
PROVIDERS: PCP Family Medicine; Visit Provider Nurse Practitioner Family
DX: R39.12 Poor urinary stream (principal); R35.1 Nocturia; R39.14 Feeling of incomplete bladder emptying
CPT/HCPCS: 36415; 84153

== ENCOUNTER 2025-05-15 10:49 | Outpatient (REF) | payer MEDICARE, SELFPAY ==
--- NOTE | ~2025-05-15 | US_ITS ---
CLINICAL HISTORY: R39.14 - Feeling of incomplete bladder emptying US Renal Comparison: None provided Findings: Right kidney normal size and echotexture, 11.6 cm length. Left kidney normal size and echotexture, 12 cm length. No hydronephrosis of either kidney. Normal color Doppler. There are probable vascular calcifications within the bilateral kidneys. No definite calculi. There is a 7 mm cyst within the midportion of the right kidney. Urinary bladder is unremarkable. Prevoid volume 413 mL. Postvoid volume 72 mL. Bilateral ureteral jets are visualized. The prostate gland measures 2.3 x 3.2 x 3.4 cm in size. IMPRESSION: 1. No acute abnormality of the kidneys. This document has been electronically signed by: Mag Vegas MD on 05/16/2025 14:39:43
--- OUTSIDE RECORDS SUMMARY | 2025-05-15 11:49 | XMS_ITS | Encounter Summary ---
Author Organization [facility] Address [address] [place] [address] Care Team Providers Care Newspaper Subscription Solicitor Name Role Phone Pcp, No Primary Care Provider Unavailabl e Encounter Details Date Type Department Care Team (Late st Contact Info) Description 09/07/2017 Scanned Document [address] [address] Provider, Generic Social History Tobacco Use Types [...] on filedocumented in this encounter Care Teams Newspaper Subscription Solicitor Relationship Specialty Start Date End Date Pcp, No PCP - General General Medicine 06/11/17 documented as of this encounter
--- OUTSIDE RECORDS SUMMARY | 2025-05-15 11:49 | XMS_ITS | Patient Health Record ---
Author Organization [facility] Address [address] [place] [address] Care Team Providers Care Manager Quantitative Name Role Phone Rufus (RETIRED) Pio RICHARDSON Primary Care Provider Unavailable Davian Ochoa Unavailable [phone] Allergies Allergen (clinical drug ingredient) Drug/Non Drug Allergy documented on EMR Reaction Allergy Type Onset Date Status Substance with 0-hxyhuaf-5-methylgluta ryl-coenzyme A reductase inhibitor mechanism of action (substance) Statins Unknown Drug Allergy Active Penicillin Unknown Drug Allergy Active Results Component Value Reference Range Notes Pathology (Not yet reviewed by provider) Interpretation: Performing Lab:[facility], [address] [place] [phone] Notes/Report: Reason For Referral No Information Medications [...] Problem Status W/U Status Risk Notes Problem 682431183 Encounter for screening for malignant neoplasm of colon (Z12.11) Active confirmed Problem 929190247 Gastroesophageal reflux disease with esophagitis (K21.0) Active confirmed Problem 115316355 Hx of adenomatou s colonic polyps (Z86.010) Active confirmed Problem Gastroesophageal reflux disease (disorder) (378181662) Chronic GERD (K21.9) Active confirmed Problem Personal history of adenomatous and serrated colon polyps (Z86.0101) Active confirmed Vital Signs Blood pressure diastolic 00 mm Hg 09/13/2024 Height 66 in 09/13/2024 Blood pressure systolic 00 mm Hg 09/13/2024 Weight 170 lbs 09/13/2024 BMI 27.44 kg/m2 09/13/2024 Encounters Encounter Location Date Provider Diagnosis [facility] Outpatient [address] [place], [place] [phone] 01/02/2025 Davian Ochoa Colon cancer screeni ng Z12.11 ; Personal history of colonic polyps Z86.0100 ; Colon polyps K63.5 and Diverticulosis of large intestine without perforation or abscess without bleeding K57.30 [facility] [address] [place] [address] 09/13/2024 Davian Ochoa Hx of adenomatous colonic [...] Insured Coverage Start Date Coverage End Date [facility] [address] [place] [address] [id number] MARTÍN PIRES Self - patient is the insured Medical (General) History Medical History History ICD Code GERD-EGD's in 1998, 2007, an d 11-14-2008--reflux esophagitis--small to mod-sized HH---no [facility] Colonoscopy 07-17-2006--1 small tubular adenoma removed Hyperlipidemia Anxiety Asthma Denies [place],DM,renal disease Neg. colonoscopy in 04/2014 e xcept [...]
--- OUTSIDE RECORDS SUMMARY | 2025-05-15 11:49 | XMS_ITS | Clinical Summary ---
Author Organization [facility] Address [address] [place] [address] Care Team Providers Care Make Up Worker Name Role Phone Pio Hooper MD Primary Care Provider [phone] Social History Tobacco Use Types Packs/Day Years [...] age to complete this topic Care Teams Make Up Worker Relationship Specialty Start Date End Date Pio Hooper MD [address] [place] [address] [place] [address] PCP - General Internal Medicine 09/07/17
--- OUTSIDE RECORDS SUMMARY | 2025-05-15 11:49 | XMS_ITS | Clinical Summary ---
Author Organization [facility] Address [address] [place] [address] Care Team Providers Care Screen Repairer Crusher Name Role Phone Pio Hooper Primary Care Provider [phone] Allergies Active Allergy Reactions Criticality Noted Date [...] Advance Directives For more information, please contact: [phone] Documents on File Type Date Recorded Patient Stone Processing Machine Operator Expl anation Advance Directives 07/23/2018 1:19 PM Care Teams Screen Repairer Crusher Relationship Specialty Start Date End Date Pio Hooper [address] [place] [phone] PCP - General 10/24/21
== END 2025-05-15 10:50 | disposition home or self-care (01) ==
LOC: HO.US 10:49
PROVIDERS: PCP Family Medicine; Visit Provider Nurse Practitioner Family
DX: R39.14 Feeling of incomplete bladder emptying (principal); R39.12 Poor urinary stream; R35.1 Nocturia
CPT/HCPCS: 76770

== ENCOUNTER → 2025-05-15 10:51 | Outpatient (BNV) | payer MEDICARE, SELFPAY | PROVIDERS: PCP Family Medicine; Visit Provider Radiology Diagnostic Radiology | DX: R39.14 Feeling of incomplete bladder emptying (principal) | CPT/HCPCS: 76770 ==

== ENCOUNTER 2025-05-22 11:35 | Outpatient (AMB) | payer MEDICARE, SELFPAY ==
--- NOTE | 2025-05-22 11:36 | MHC.PC.OV ---
Vital Signs 05/22/25 11:45 Height 5 ft 6 in Weight 160 lb BMI 25.8 BP 137/71 Respiration 17 Pulse 75 Pulse Source Pulse Oximeter Temp 98.4 F Temp Source Temporal Artery Scan Pulse Oximetry (%) 96 Oxygen Delivery Method Room Air Intake Visit Reasons: Routine / Dr Hooper [employer] Collection Operator Required: No Accompanied by: Self / Same As Patient Allergies penicillin V Allergy (Severe, Verified 05/22/25 11:36) anaphylaxis trazodone Allergy (Severe, Verified 05/22/25 11:36) lethargy zolpidem (Ambien) Allergy (Severe, Verified 05/22/25 11:36) lethargy Fdjvcfe-MLL-MtO Reductase Inhibitor Allergy (Intermediate, Verified 05/22/25 11:36) Muscle cramps Tobacco use date assessed: 05/22/25 HPI HPI Comments History of Present Illness Details The patient is a 69-year-old male presenting with a complaint of experiencing cramps in the neck primarily associated with yawning. This symptom reportedly starts at the back of his neck and can be severe, reaching a pain level of 10 out of 10, but it spontaneously subsides after a few minutes. The issue predominantly arises during stretching or yawning and is less frequently provoked by moving the neck suddenly. The patient notes that the pain impacts him significantly in the moment but gradually decreases in intensity. There is no associated weakness, dizziness, or falls reported during these episodes. Historically, the patient suffered a stroke four years ago, leading to some cognitive changes, specifically difficulties with memory retention and multitasking. He denies any residual physical weakness from the stroke itself. The patient has been diagnosed with and is under treatment for essential hypertension, hyperlipidemia, benign prostatic hyperplasia, and gastroesophageal reflux disease. 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 Additionally, he uses a CPAP machine for sleep apnea and recently underwent a carotid ultrasound. He confirms adherence to memory aids, like notes, to assist with daily functioning and medication compliance. Medical History: - Cerebrovascular Accident (Stroke) 4 years ago - Essential Hypertension - Hyperlipidemia - Gastroesophageal Reflux Disease - Benign Prostatic Hyperplasia - Sleep Apnea Surgical History: - Carotid endarterectomy (right side) Medications: - Albuterol for Shortness of Breath - Amlodipine for Blood Pressure - Metoprolol for Blood Pressure - Repatha (Evolocumab) for Hyperlipidemia - Plavix (Clopidogrel) following Stroke - Multivitamin - Omeprazole for Gastroesophageal Reflux - Terazosin for Urinary Retention related to Benign Prostatic Hyperplasia Family History: - Mother: Diabetes Mellitus - Mother: History of In-and-out hospitalizations for Heart Attacks [facility] Medical History (Updated 05/22/25 @ 12:16 by Farooq Johnson MD) Lung cancer screening declined by patient History of CVA (cerebrovascular accident) (~2020) Renal calculi CECELIA on CPAP HTN (hypertension) Asthma Anxiety HLD (hyperlipidemia) GERD (gastroesophageal reflux disease) Surgical History (Updated 04/04/25 @ 14:31 by Bethanie Irving) History of left-sided carotid endarterectomy (2021) Hx of colonoscopy (~01/02/25) History of esophagogastroduodenoscopy (EGD) Social History (Reviewed 02/28/25 @ 09:17 by Morelia Cuba [facility]) Household Members: Spouse Housing: House Are you a primary wound care technician to a significant other at home: No Do you presently have visiting nurse or other home services: No Patient Tobacco Use Status: Former Tobacco user Tobacco use type: Cigarette e-Cigarette/Vaping Use: Never Used Questionnaire PHQ-9 Over the last 2 weeks, how often have you been bothered by any of the following problems? 1. Little interest or pleasure in doing things: not at all 2. Feeling down, depressed, or hopeless: not at all 3. Trouble falling or staying asleep, or sleeping too much: not at all 4. Feeling tired or having little energy: not at all 5. Poor appetite or overeating: not at all 6. Feeling bad about yourself - or that you are a failure or have let yourself or your family down: not at all 7. Trouble concentrating on things, such as reading the newspaper or watching television: several days 8. Moving or speaking so slowly that other people could have noticed. Or the opposite - being so fidgety or restless that you have been moving around a lot more than usual: not at all 9. Thoughts that you would be better off or of hurting yourself in some way: not at all Total score: 1 Depression Screening Interpretation: Negative Depression Screening Done: Yes 46499 - PHQ-9 Billing: Yes Source: Developed by Drs. Davian L. ViriSoila liu Kurt Kroenke and colleagues, with an educational cory from [employer]. AUDIT C Alcohol Use Questionnaire (AUDIT-C) 1. How often do you have a drink containing alcohol?: Never 2. How many drinks containing alcohol do you have on a typical day when you are drinking?: 1 or 2 3. How often do you have six or more drinks on one occasion?: Never Total Score: 0 Score Reviewed/Action Taken: Yes RICHARD-7 AMB Questionnaire RICHARD-7 Feeling nervous, anxious, or on edge: 0 = Not at all Not being able to stop or control worryin = Several days Worrying too much about different things: 0 = Not at all Trouble relaxin = Several days Being so restless that it is hard to sit still: 0 = Not at all Becoming easily annoyed or irritable: 0 = Not at all Feeling afraid as if something awful might happen: 0 = Not at all Total RICHARD-7 score (0-4 normal; 5-9 mild; 10-14 moderate; 15-21 severe): 2 Source: Developed by Drs. Davian Meredith, Harry Dugan and colleagues, with an educational cory from [employer]. RICHARD-7 Assessment Billing RICHARD-7 Assessment Tool: RICHARD-7 Assessment 28138 Review of Systems Const Details: - Constitutional: Denies fever, weight changes - Neurological: Reports strong neck pain associated with yawning; denies dizziness - Cardiovascular: Reports good exercise tolerance; denies chest pain - Respiratory: Reports use of CPAP machine, occasional shortness of breath - Gastrointestinal: Denies nausea, vomiting, abdominal pain - Genitourinary: Reports nocturia, currently managed with terazosin - Psychological: Denies significant depressive symptoms or anxiety; reports history of worrying - Musculoskeletal: Denies weakness; neck cramps with specific movement All systems reviewed & are unremarkable except as noted in HPI and below Physical exam (Primary Care) Vital Signs: Last Vital Signs Temp 98.4 F 05/22/25 11:45 Pulse 75 05/22/25 11:45 Resp 17 05/22/25 11:45 BP 137/71 05/22/25 11:45 Pulse Ox 96 05/22/25 11:45 Oxygen Delivery Method Room Air 05/22/25 11:45 BMI result Body Mass Index 25.8 Tobacco/Smoking Status: Tobacco use Status Tobacco use date assessed 05/22/25 05/22/25 11:41 Patient Tobacco Use Status Former Tobacco user 05/22/25 11:41 Tobacco use type Cigarette 05/22/25 11:41 e-Cigarette/Vaping Use Never Used 05/22/25 11:41 Depression Screening Interpretation: Negative Const Other: General: Alert and oriented, Well nourished, No acute distress. Eye: Pupils are equal, round and reactive to light, Intact accommodation, Extraocular movements are intact, Normal conjunctiva, Vision unchanged. HENT: Normocephalic, Atraumatic, Tympanic membranes are clear, Normal hearing, Oral mucosa is moist, No pharyngeal erythema, Ear canals patent. Respiratory: Lungs CTA bilaterally, No wheeze, Respirations are non-labored. Cardiovascular: Regular rate, Regular rhythm, S1 auscultated, S2 auscultated, No murmur, Good pulses equal in all extremities, Normal peripheral perfusion, No edema. Gastrointestinal: Soft, Non-tender, Non-distended, Normal bowel sounds, No organomegaly. Musculoskeletal: Normal range of motion, Normal strength, No tenderness, No swelling, No deformity, Normal gait. Integumentary: Warm, Dry, [place], Intact. Neurologic: Alert, Oriented, Normal sensory, Normal motor function, No focal defects, Cranial Nerves II-XII are grossly intact, Normal deep tendon reflexes. Psychiatric: Cooperative, Appropriate mood & affect, Normal judgment. Coding Level of Care Code Est Pt Level 4 (61203) Complex EM visit Add On G2211 Diagnoses Primary hypertension I10 Hypertension type: primary hypertension CECELIA on CPAP G47.33 History of CVA (cerebrovascular accident) Z86.73 Feeling of incomplete bladder emptying R39.14 Screening for lung cancer Z12.2 Hyperlipidemia, unspecified hyperlipidemia type E78.5 Hyperlipidemia type: unspecified Additional Codes PHQ-9 - 13964 - PHQ-9 Billing: Yes ([id number]) RICHARD-7 Assessment Billing - RICHARD-7 Assessment Tool: RICHARD-7 Assessment 24827 ([id number]) Time Spent (min) 50 Assessment & Plan Assessment & Plan (1) HTN (hypertension): Comment: Home regimen: Amlodipine 5 mg daily, metoprolol succinate 25 mg daily Pressure is well controlled however mildly elevated in clinic to 137 -strongly reinforced need for better blood pressure control given history of strokes and reports pressures at home well controlled requested patient to bring blood pressure log at next visit Code(s): I10 - Essential (primary) hypertension Category: Medical Qualifiers: Hypertension type: primary hypertension Qualified Code(s): I10 - Essential (primary) hypertension Plan: Continue amlodipine Continue metoprolol Bring medication along the next visit (2) CECELIA on CPAP: Comment: Adherent to CPAP Code(s): G47.33 - Obstructive sleep apnea (adult) (pediatric) Category: Medical Plan: Continue CPAP Reorder to place today (3) History of CVA (cerebrovascular accident): Onset Date: ~2020 Comment: some memory loss, and slight speech problem Currently on Plavix Code(s): Z86.73 - Personal history of transient ischemic attack (TIA), and cerebral infarction without residual deficits Category: Medical Plan: Continue Plavix Continue follow up with Neurology (4) Feeling of incomplete bladder emptying: Comment: Reports was recently switched to terazosin by urologist and has had some mild improvement in symptoms Given the class of drug will await to see if her improvement in symptoms before making any further changes and defer management to Urology Code(s): R39.14 - Feeling of incomplete bladder emptying Category: Medical Plan: Continue terazosin Continue follow-up with Urology (5) Screening for lung cancer: Code(s): Z12.2 - Encounter for screening for malignant neoplasm of respiratory organs Plan: - Over 15 year smoking history (over 1ppd) (6) HLD (hyperlipidemia): Comment: Currently on Repatha with most recent lipid panel demonstrating well-controlled LDL of 56 however triglycerides still elevated Code(s): E78.5 - Hyperlipidemia, unspecified Category: Medical Qualifiers: Hyperlipidemia type: unspecified Qualified Code(s): E78.5 - Hyperlipidemia, unspecified Plan: Continue Repatha Repeat Lipid Panel Orders: Orders Hemoglobin A1c 1 Month E78.5 - Hyperlipidemia, unspecified, I10 - Essential (primary) hypertension TSH reflex Free T4 1 Month E78.5 - Hyperlipidemia, unspecified, I10 - Essential (primary) hypertension CT lung screening 1 Month E78.5 - Hyperlipidemia, unspecified, I10 - Essential (primary) hypertension, Z53.20 - Procedure and treatment not carried out because of patient's decision for unspecified reasons Complete Blood Count Auto Diff 1 Month E78.5 - Hyperlipidemia, unspecified, I10 - Essential (primary) hypertension Basic Metabolic Panel 1 Month E78.5 - Hyperlipidemia, unspecified, I10 - Essential (primary) hypertension Vitamin D 25-OH Total 1 Month E78.5 - Hyperlipidemia, unspecified, I10 - Essential (primary) hypertension
[2025-05-22 11:45] VITALS: BP 137/71; PULSE 75; RESP 17; TEMP 36.9; O2SAT 96; BMI 25.8
--- OUTSIDE RECORDS SUMMARY | 2025-05-22 13:09 | XMS_ITS | Clinical Summary ---
Author Organization [facility] Address [address] [place] [id number] Care Team Providers Care Plaster Caster Name Role Phone Pio Hooper Primary Care Provider [phone] Allergies Active Allergy Reactions Criticality Noted Date [...] Advance Directives For more information, please contact: [phone] Documents on File Type Date Recorded Patient Manager Research And Development Expl anation Advance Directives 07/23/2018 1:19 PM Care Teams Plaster Caster Relationship Specialty Start Date End Date Pio Hooper [address] [place] [phone] PCP - General 10/24/21
--- OUTSIDE RECORDS SUMMARY | 2025-05-22 13:09 | XMS_ITS | Clinical Summary ---
Author Organization [facility] Address [address] [place] [address] Care Team Providers Care Radiological Technologist Name Role Phone Pio Hooper MD Primary Care Provider [phone] Social History Tobacco Use Types Packs/Day Years [...] age to complete this topic Care Teams Radiological Technologist Relationship Specialty Start Date End Date Pio Hooper MD [address] [place] [address] [place] [id number] PCP - General Internal Medicine 09/07/17
--- OUTSIDE RECORDS SUMMARY | 2025-05-22 13:09 | XMS_ITS | Patient Health Record ---
Author Organization [facility] Address [address] [place] [address] Care Team Providers Care Clin Tech Name Role Phone Rufus (RETIRED) Pio RICHARDSON Primary Care Provider Unavailable Davian Ochoa Unavailable [phone] Allergies Allergen (clinical drug ingredient) Drug/Non Drug Allergy documented on EMR Reaction Allergy Type Onset Date Status Substance with 1-sowixhh-4-methylgluta ryl-coenzyme A reductase inhibitor mechanism of action (substance) Statins Unknown Drug Allergy Active Penicillin Unknown Drug Allergy Active Results Component Value Reference Range Notes Pathology (Not yet reviewed by provider) Interpretation: Performing Lab:[facility], [address] [place] [phone] Notes/Report: Reason For Referral No Information Medications [...] Problem Status W/U Status Risk Notes Problem [id number] Encounter for screening for malignant neoplasm of colon (Z12.11) Active confirmed Problem [id number] Gastroesophageal reflux disease with esophagitis (K21.0) Active confirmed Problem 396831659 Hx of adenomatou s colonic polyps (Z86.010) Active confirmed Problem Gastroesophageal reflux disease (disorder) (476574989) Chronic GERD (K21.9) Active confirmed Problem Personal history of adenomatous and serrated colon polyps (Z86.0101) Active confirmed Vital Signs Blood pressure diastolic 00 mm Hg 09/13/2024 Height 66 in 09/13/2024 Blood pressure systolic 00 mm Hg 09/13/2024 Weight 170 lbs 09/13/2024 BMI 27.44 kg/m2 09/13/2024 Encounters Encounter Location Date Provider Diagnosis [facility] Outpatient [address], [place] [id number] 01/02/2025 Davian Ochoa Colon cancer screeni ng Z12.11 ; Personal history of colonic polyps Z86.0100 ; Colon polyps K63.5 and Diverticulosis of large intestine without perforation or abscess without bleeding K57.30 [facility] [address] [place] [address] 09/13/2024 Davian Ochoa Hx of adenomatous colonic [...] End Date [facility] [address] [place] [address] [phone] [id number] MARTÍN PIRES Self - patient is the insured Medical (General) History Medical History History ICD Code GERD-EGD's in 1998, 2007, an d 11-14-2008--reflux esophagitis--small to mod-sized HH---no [employer] Colonoscopy 07-17-2006--1 small tubular adenoma removed Hyperlipidemia Anxiety Asthma Denies CT,DM,renal disease Neg. colonoscopy in 04/2014 e xcept [...]
--- OUTSIDE RECORDS SUMMARY | 2025-05-22 13:09 | XMS_ITS | Encounter Summary ---
Author Organization [facility] Address [address] [place] [address] Care Team Providers Care Beck Tender Name Role Phone Pcp, No Primary Care Provider Unavailabl e Encounter Details Date Type Department Care Team (Late st Contact Info) Description 09/07/2017 Scanned Document [address] [id number] Provider, Generic Social History Tobacco Use Types [...] on filedocumented in this encounter Care Teams Beck Tender Relationship Specialty Start Date End Date Pcp, No PCP - General General Medicine 06/11/17 documented as of this encounter
== END 2025-05-22 13:43 | disposition home or self-care (01) ==
LOC: HO.HMCHD 11:36
PROVIDERS: PCP Student in an Organized Health Care Education/Training Program; Visit Provider Student in an Organized Health Care Education/Training Program
DX: I10 Essential (primary) hypertension (principal); G47.33 Obstructive sleep apnea (adult) (pediatric); Z86.73 Personal history of transient ischemic attack (TIA), and cerebral infarction without residual deficits; R39.14 Feeling of incomplete bladder emptying; Z12.2 Encounter for screening for malignant neoplasm of respiratory organs; E78.5 Hyperlipidemia, unspecified

== ENCOUNTER → 2025-05-22 11:35 | Outpatient (BNVA) | payer MEDICARE, SELFPAY | PROVIDERS: PCP Family Medicine; Visit Provider Student in an Organized Health Care Education/Training Program | DX: I10 Essential (primary) hypertension (principal); G47.33 Obstructive sleep apnea (adult) (pediatric); R39.14 Feeling of incomplete bladder emptying; E78.5 Hyperlipidemia, unspecified; Z86.73 Personal history of transient ischemic attack (TIA), and cerebral infarction without residual deficits; Z79.02 Long term (current) use of antithrombotics/antiplatelets; Z79.899 Other long term (current) drug therapy; Z99.89 Dependence on other enabling machines and devices; Z13.31 Encounter for screening for depression; Z13.30 Encounter for screening examination for mental health and behavioral disorders, unspecified | CPT/HCPCS: 96127; 99202 ==

== ENCOUNTER 2025-05-31 11:40 | Outpatient (AMB) | payer MEDICARE, SELFPAY ==
--- NOTE | 2025-05-31 11:48 | A.OFFVIS_ITS ---
Intake Visit Reasons: 3m/PSA/US Intake Note: Patient presents for visit for: 3mo/PSA/US Urology Medications: terazosin Blood Thinner: none today's PVR: 10mls imaging done: 05/16/25 Filler Spreader Required: No Accompanied by: Spouse Allergies penicillin V Allergy (Severe, Verified 05/31/25 14:29) anaphylaxis trazodone Allergy (Severe, Verified 05/31/25 14:29) lethargy zolpidem (Ambien) Allergy (Severe, Verified 05/31/25 14:29) lethargy Wictpaf-NWK-OmS Reductase Inhibitor Allergy (Intermediate, Verified 05/31/25 14:29) Muscle cramps Medication List - Last Reconciled 05/31/25 by TIARA Baxter- albuterol sulfate 90 mcg/actuation 2 puffs inhalation Q4H PRN amlodipine 5 mg PO QAM clopidogrel 75 mg PO DAILY evolocumab (Repatha SureHerberick) 140 mg subcut Q2W fluticasone propionate 110 mcg/actuation 1 puff inhalation BID magnesium 400 mg PO DAILY metoprolol succinate ER 25 mg PO DAILY miscellaneous medical supply (Tube and Connector Kit) Heated tubing element for CPAP multivitamin 1 tab PO DAILY omeprazole 20 mg PO BID terazosin 5 mg PO BEDTIME 30 days HPI Comments Details: Yousuf Saleh is a very pleasant 69-year-old male patient of Dr. Hooper who was accompanied by his significant Risa at today's office visit. He h as a past medical history of CVA, nephrolithiasis, obstructive sleep apnea on CPAP, hypertension, asthma, anxiety, hyperlipidemia, and GERD. He presents to the office today for follow-up. Of note, patient was seen approximately 3 months ago as a new patient for his longstanding history of lower urinary tract symptoms at which time a retroperitoneal ultrasound and PSA were ordered for further assessment evaluation. These results were reviewed and communicated with the patient and his significant other today. Retroperitoneal ultrasound 05/22 noted bilateral kidneys are normal in size and echotexture. No hydronephrosis or definite calculi noted. There are probable vascular calcifications within the bilateral kidneys. There is a 7 mm cyst within the midportion of the right kidney. The urinary bladder is unremarkable. Pre void bladder volume 413. Postvoid bladder volume 70 mL. The prostate measures 12.7 mL. He does feel terazosin 5 mg at bedtime has been helpful in reducing episod es of nocturia he had been experiencing. He reports previously he had experienced nocturia up to 5 times per night however feels they have decrease to 2-3 times per night. He does discuss having had a previous prostate procedure TUNA with Dr. Dunne as well as previous ESWL for his history of nephrolithiasis. He reports no improvement in lower urinary tract symptoms status post prostate procedure with Dr. Dunne in the past. He does report being compliant with CPAP for his sleep apnea. We did discuss differences in prostate procedures. All questions were answered. In office urinalysis results reviewed with the patient today. PVR 10 mL. He denies hematuria, dysuria, foul smelling urine, flank pain, fever, and or chills. PSAs are as follows: PSAs: 11/21 0.5, 04/21 1.0 He otherwise offers no other issues or concerns at this time. [facility], [facility] Medical History Lung cancer screening declined by patient History of CVA (cerebrovascular accident) (~2020) Renal calculi CECELIA on CPAP HTN (hypertension) Asthma Anxiety HLD (hyperlipidemia) GERD (gastroesophageal reflux disease) Surgical History (Updated 04/04/25 @ 14:31 by Bethanie Irving) History of left-sided carotid endarterectomy (2021) Hx of colonoscopy (~01/02/25) History of esophagogastroduodenoscopy (EGD) Social History Household Members: Spouse Housing: House Are you a primary career development associate to a significant other at home: No Do you presently have visiting nurse or other home services: No Patient Tobacco Use Status: Former Tobacco user Tobacco use type: Cigarette e-Cigarette/Vaping Use: Never Used Review of Systems Const All systems reviewed & are unremarkable except as noted in HPI and below Physical Exam Const General: cooperative, healthy appearing, comfortable, no acute distress, well developed, alert and awake Orientation/consciousness: patient oriented x3 Limitations: other limitations (Aphasia) HEENT Head: Yes normal to inspection, Yes normocephalic and Yes atraumatic Ears: hearing grossly normal bilaterally Eyes General: appearance normal, both eyes and all related structures Neck Neck: Yes normal visual inspection and Yes trachea midline Chest Chest palpation & inspection: normal inspection of the chest Resp Effort & Inspection: normal respiratory effort and able to speak in complete sentences Cardio Rate: regular rate GI Inspection: Yes normal to inspection General: Yes no CVA tenderness Back/Spine/Pelvis Back: no CVA tenderness Skin General skin exam: no rashes or lesions noted Neuro General: patient oriented x3 Extrem General: Yes normal to inspection Psych Appearance: grossly normal and well kempt Mental Status: mental status grossly normal Speech and movement: Clear speech present and Slowed speech present (Psych) Affect: normal affect Attitude: cooperative Thought process: Normal thought process present Thought content: Normal thought content present Insight: Fair insight present (Psych) Judgement: Fair judgement present (Psych) Office Procedures Post Void Residual Post Residual Void Post Void Residual (PVR): 10 [id number] Void Residual by ultrasound Results AMB Urinalysis, Automated UA Leukoctes 0 Latoya/uL Last Edit by CALIXTO Goss on 05/31/25 11:58 UA Nitrite Negative Last Edit by CALIXTO Goss on 05/31/25 11:58 UA Urobilinogen 3.5 mg/dL Last Edit by CALIXTO Goss on 05/31/25 11:5 8 UA Protein 0 mg/dL Last Edit by CALIXTO Goss on 05/31/25 11:58 UA pH 6.0 Last Edit by CALIXTO Goss on 05/31/25 11:58 UA Blood 0 Cam/uL Last Edit by CALIXTO Goss on 05/31/25 11:58 UA Specific [place] 1.010 Last Edit by CALIXTO Goss on 05/31/25 11: 58 UA Ketone Negative Last Edit by CALIXTO Goss on 05/31/25 11:58 UA Bilirubin 0 mg/dL Last Edit by CALIXTO Goss on 05/31/25 11:58 UA Glucose 0 mg/dL Last Edit by CALIXTO Goss on 05/31/25 11:58 Results Reviewed Results Reviewed: Laboratory Last Values Urine pH (Auto) 6.0 05/31/25 11:58 Specific [place] (Auto) 1.010 05/31/25 11:58 Urine Protein (Auto) 0 mg/dL 05/31/25 11:58 Glucose (UA)(Auto) 0 mg/dL 05/31/25 11:58 Urine Ketones (Auto) Negative 05/31/25 11:58 Urine Blood (Auto) 0 Cam/uL 05/31/25 11:58 Urine Nitrite (Auto) Negative 05/31/25 11:58 Urine Bilirubin (Auto) 0 mg/dL 05/31/25 11:58 Urine Urobilinogen (Auto) 3.5 mg/dL 05/31/25 11:58 Leukocyte Esterase (Auto) 0 Latoya/uL 05/31/25 11:58 Date of Service: 05/15/25 Procedure(s): US retroperitoneal comp Findings: Right kidney normal size and echotexture, 11.6 cm length. Left kidney normal size and echotexture, 12 cm length. No hydronephrosis of either kidney. Normal color Doppler. There are probable vascular calcifications within the bilateral kidneys. No definite calculi. There is a 7 mm cyst within the midportion of the right kidney. Urinary bladder is unremarkable. Prevoid volume 413 mL. Postvoid volume 72 mL.Bilateral ureteral jets are visualized. The prostate gland measures 2.3 x 3.2 x 3.4 cm in size. IMPRESSION: 1. No acute abnormality of the kidneys. Assessment & Plan Assessment & Plan (1) Nocturia: Code(s): R35.1 - Nocturia Category: Medical (2) Weak urine stream: Code(s): R39.12 - Poor urinary stream Category: Medical (3) Feeling of incomplete bladder emptying: Comment: Reports was recently switched to terazosin by urologist and has had some mild improvement in symptoms Given the class of drug will await to see if her improvement in symptoms before making any further changes and defer management to Urology Code(s): R39.14 - Feeling of incomplete bladder emptying Category: Medical Plan In office urinalysis results reviewed with the patient today; as noted above. PVR 10 mL. Recent retroperitoneal ultrasound results reviewed with the patient today; as noted above. Recent PSA results reviewed with the patient today; as noted above. We did discussed further treatment options for lower urinary tract symptoms patient is experiencing as well as risks and benefits of these treatment options. All questions were answered. Will continue with terazosin as discussed and prescribed. We did discussed potential near future in office cystoscopy for further assessment evaluation. Follow-up in 3-6 months with PVR; or sooner with any issues, concerns, and or questions. Orders: Orders AMB Post Void Residual by ultrasound Today R39.12 - Poor urinary stream AMB Urinalysis Automated Today Z13.9 - Encounter for screening, unspecified Patient Instructions: The patient had an opportunity to ask questions regarding the treatment plan. All questions were answered. Physical exam, labs, and imaging were discussed and reviewed in detail. As well as risks, benefits, and discussion of treatment choices. No major barriers to understanding were identified. The patient expressed understanding and agreement with the above treatment plan. The patient was made aware they should contact our office by phone for worsening of their current condition, the appearance of new symptoms, or with any questions or concerns. Compliance is encouraged with any medications and follow up testing that is ordered. It is a privilege to be allowed the opportunity to participate in? your urological care.? Again, if you have any questions or concerns If you have any questions or concerns please do not hesitate to contact me. The office is [phone]. This note is constructed using voice recognition software. While every effort has been made to ensure accuracy land use planner errors may have been included. Yours sincerely, BRANDON Baxter Coding Level of Care Code Est Pt Level 3 (74594) Complex EM visit Add On G2211 Diagnoses Nocturia R35.1 Weak urine stream R39.12 Feeling of incomplete bladder emptying R39.14 CPT Codes Post Residual Void - PVR CPT Code: 46405-[id number] Void Residual by ultrasound ([id number])
--- OUTSIDE RECORDS SUMMARY | 2025-05-31 14:03 | XMS_ITS | Encounter Summary ---
Author Organization [facility] Address [address] [place] [address] Care Team Providers Care Commercial Real Estate Paralegal Name Role Phone Pcp, No Primary Care Provider Unavailabl e Encounter Details Date Type Department Care Team (Late st Contact Info) Description 09/07/2017 Scanned Document [address] [phone] Provider, Generic Social History Tobacco Use Types [...] on filedocumented in this encounter Care Teams Commercial Real Estate Paralegal Relationship Specialty Start Date End Date Pcp, No PCP - General General Medicine 06/11/17 documented as of this encounter
--- OUTSIDE RECORDS SUMMARY | 2025-05-31 14:03 | XMS_ITS | Clinical Summary ---
Author Organization [facility] Address [address] [place] [address] Care Team Providers Care International Trade Manager Name Role Phone Pio Hooper MD Primary Care Provider [phone] Social History Tobacco Use Types Packs/Day Years [...] age to complete this topic Care Teams International Trade Manager Relationship Specialty Start Date End Date Pio Hooper MD [address] [place] [address] [place] [address] PCP - General Internal Medicine 09/07/17
--- OUTSIDE RECORDS SUMMARY | 2025-05-31 14:03 | XMS_ITS | Encounter Summary ---
Author Organization [facility] Address [address] [place] [address] Care Team Providers Care Semiconductor Wafers Marker Name Role Phone Pcp, No Primary Care Provider Unavailabl e Encounter Details Date Type Department Care Team (Late st Contact Info) Description 09/07/2017 Scanned Document [address] [phone] Provider, Generic Social History Tobacco Use Types [...] on filedocumented in this encounter Care Teams Semiconductor Wafers Marker Relationship Specialty Start Date End Date Pcp, No PCP - General General Medicine 06/11/17 documented as of this encounter
--- OUTSIDE RECORDS SUMMARY | 2025-05-31 14:03 | XMS_ITS | Clinical Summary ---
Author Organization [facility] Address [address] [place] [address] Care Team Providers Care Talent Acquisition Coordinator Name Role Phone Pcp, No Primary Care Provider Unavailabl e Allergies Active Allergy Reactions Criticality Noted Date Comments Penicillins Unknown/Patient and Family Unable to Define Medium 06/16/2017 Medications FLOVENT HFA 110 MCG/ACT inhaler 05/04/2017 Act aleah lansoprazole (PREVACID) 30 MG capsule 05/04/2017 Active losartan-hydrochlo rothiazide (HYZAAR) 100-12.5 MG per tablet 05/31/2017 Activ e metoPROLOL SUCCINATE (TOPROL-XL) 25 MG 24 hr tablet 05/04/2017 Active VIAGRA 100 MG tablet 08/21/2017 Active Active Problems Problem Noted Date Diagnosed [...] 80 10/07/2017 1:37 PM EST Temperature 37.1 C (98.7 F) 10/07/2017 1:37 PM EST Respiratory Rate 14 08/10/2017 9:52 AM EST Oxygen Saturation - - Inhaled Oxygen Concentration - - Weight 78 kg (172 lb) 09/02/2017 9:08 AM EST Height - - Body Mass Index - - Plan of Treatment Health Maintenance Due Date Last Done Comments Advance Care Planning 1955 Hepatitis C Virus Screening 1955 DTaP/Tdap/Td Vaccines (1 - Tdap) 1973 Colonoscopy 1999 Pneumococcal Vaccines 50+ (1 of 1 - PCV) 2004 Zoster (Shingles) Vaccine (1 of 2) 2004 COVID-19 Vaccine ( - 2023-2 5 season) 2024 Influenza Vaccine 04/28/2025 RSV Vaccine 60 years and old er and Patients (1 - 1-dose 75+ series) 2029 Hepatitis B Vaccines Aged Out No long er eligible based on patient's age to complete this topic Insurance AI Care Teams Talent Acquisition Coordinator Relationship Specialty Start Date End Date Pcp, No PCP - General General Medicine 06/11/17
--- OUTSIDE RECORDS SUMMARY | 2025-05-31 14:03 | XMS_ITS | Encounter Summary ---
Author Organization [facility] Address [address] [place] [address] Care Team Providers Care Welding Machine Setter Name Role Phone Pcp, No Primary Care Provider Unavailabl e Encounter Details Date Type Department Care Team (Late st Contact Info) Description 09/02/2017 Scanned Document [address] [phone] Provider, Generic Social History Tobacco Use Types [...] Narrative 09/02/2017 Ordered by an unspecified provider. us Generic Provider IMG DIAGNOSTIC IMAGING ORDERABL ES Final Result documented in this encounter Visit Diagnoses Not on filedocumented in this encounter Care Teams Welding Machine Setter Relationship Specialty Start Date End Date Pcp, No PCP - General General Medicine 06/11/17 documented as of this encounter
--- OUTSIDE RECORDS SUMMARY | 2025-05-31 14:03 | XMS_ITS | Clinical Summary ---
Author Organization [facility] Address [address] [place] [id number] Care Team Providers Care Account Collector Name Role Phone Pio Hooper Primary Care Provider [phone] Allergies Active Allergy Reactions Criticality Noted Date [...] PPSV23) 06/17/2020 06/17/2019 COVID-19 Vaccine (3 - 2024-2 6 season) 2025 12/22/2020, 11/30/2020 Influenza Vaccine (#1) 2025 06/17/2019 [...] Advance Directives For more information, please contact: [phone] Documents on File Type Date Recorded Patient Hand Spring Repairer Expl anation Advance Directives 07/23/2018 1:19 PM Care Teams Account Collector Relationship Specialty Start Date End Date Pio Hooper [address] [place] [phone] PCP - General 10/24/21
== END 2025-05-31 12:30 | disposition home or self-care (01) ==
LOC: HO.HUSH 11:41
PROVIDERS: PCP Family Medicine; Visit Provider Nurse Practitioner Family
DX: R35.1 Nocturia (principal); R39.12 Poor urinary stream; R39.14 Feeling of incomplete bladder emptying; Z13.9 Encounter for screening, unspecified
CPT/HCPCS: 99213; G2211

== ENCOUNTER → 2025-05-31 11:40 | Outpatient (BNVA) | payer MEDICARE, SELFPAY | PROVIDERS: PCP Family Medicine; Visit Provider Nurse Practitioner Family | DX: R35.1 Nocturia (principal); R39.12 Poor urinary stream; R39.14 Feeling of incomplete bladder emptying | CPT/HCPCS: 51798; 81003; 99212 ==

== ENCOUNTER 2025-08-14 15:48 | Outpatient (AMB) | payer MEDICARE, SELFPAY ==
[2025-08-14 15:51] VITALS: BP 130/68; PULSE 54; RESP 16; TEMP 35.9; O2SAT 98; BMI 27.4
--- NOTE | 2025-08-14 15:51 | MHC.PC.OV ---
Vital Signs 08/14/25 15:51 Height 5 ft 6 in Weight 170 lb BMI 27.4 BP 130/68 Blood Pressure Location Lt brachial Position Sitting Respiration 16 Pulse 54 Pulse Source Pulse Oximeter Temp 96.7 F L Temp Source Temporal Artery Scan Pulse Oximetry (%) 98 Oxygen Delivery Method Room Air Intake Visit Reasons: 3 month f/u with labs Advertising Rep Required: No Accompanied by: Spouse Allergies penicillin V Allergy (Severe, Verified 08/14/25 15:51) anaphylaxis trazodone Allergy (Severe, Verified 08/14/25 15:51) lethargy zolpidem (Ambien) Allergy (Severe, Verified 08/14/25 15:51) lethargy Qyzevxw-TZA-HcM Reductase Inhibitor Allergy (Intermediate, Verified 08/14/25 15:51) Muscle cramps Tobacco use date assessed: 08/14/25 Fall risk assessment: No Falls in past year Last assessed Fall Risk: 08/14/25 Dental Screening Dental Screen Date: 08/14/25 Did you have a dental visit in the last 12 months?: Yes Was dental information given to patient?: Patient has dentist HPI HPI Comments History of Present Illness Details History of Present Illness The patient is a 70-year-old male presenting for a follow-up visit for management of his chronic conditions and new bilateral hip pain. He reports he has not felt 100% since his stroke but continues to improve. His chronic conditions include asthma, for which he uses albuterol and fluticasone inhalers, hypertension managed with amlodipine and metoprolol succinate, hyperlipidemia treated with Repatha prescribed by his neurologist, and acid reflux controlled with omeprazole. He also takes Plavix for secondary stroke prevention and terazosin for his prostate, which has helped with previous difficulty urinating. His home blood pressure readings are stable in the 130s. The patient reports new onset of bilateral hip pain, which is worse in the morning upon waking and lasts for about 30 to 60 minutes. The pain subsides but is aggravated again with walking. He reports Tylenol helps with the pain but he cannot take ibuprofen. He has a history of a work-related back injury in 2017, for which spinal fusion was recommended, but he declined. He received a back injection that provided relief for about four or five years. His sciatica has recurred and has been present for the last three to four years. The patient did not complete the blood work ordered prior to this visit, which was intended to check his blood counts, electrolytes, glucose, thyroid function, and vitamin D levels. His last available lab result is a PSA from March. Medical History: - History of stroke - Asthma - Hypertension - Hyperlipidemia - Gastroesophageal reflux disease - Benign prostatic hyperplasia - Chronic back pain secondary to a work injury in 2016 - Sciatica Medications: - Albuterol inhaler for asthma - Fluticasone for asthma - Amlodipine 5 mg for hypertension - Plavix for post-stroke prevention - Repatha for hyperlipidemia - Metoprolol succinate for hypertension - Omeprazole for acid reflux - Terazosin for benign prostatic hyperplasia Diagnostic Results: - Labs: Last performed blood work was a PSA test in March. - Imaging: Patient reports a whole-body x-ray was done at [facility], but these images are not available for review. 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 - Activity Level: Patient is very active and reportedly never stops. [facility] Medical History (Updated 08/14/25 @ 16:34 by Farooq Johnson MD) Lower extremity edema Chronic back pain Hip pain Lung cancer screening declined by patient History of CVA (cerebrovascular accident) (~2020) Renal calculi CECELIA on CPAP HTN (hypertension) Asthma Anxiety HLD (hyperlipidemia) GERD (gastroesophageal reflux disease) Surgical History History of left-sided carotid endarterectomy (2021) Hx of colonoscopy (~01/02/25) History of esophagogastroduodenoscopy (EGD) Social History Household Members: Spouse Housing: House Are you a primary healthcare interpreter to a significant other at home: No Do you presently have visiting nurse or other home services: No Patient Tobacco Use Status: Former Tobacco user Tobacco use type: Cigarette e-Cigarette/Vaping Use: Never Used service: No Current occupational status: retired Cognitive needs: No Hearing needs: No Vision needs: Yes (glasses) Questionnaire PHQ-9 Over the last 2 weeks, how often have you been bothered by any of the following problems? 1. Little interest or pleasure in doing things: not at all 2. Feeling down, depressed, or hopeless: not at all 3. Trouble falling or staying asleep, or sleeping too much: not at all 4. Feeling tired or having little energy: not at all 5. Poor appetite or overeating: not at all 6. Feeling bad about yourself - or that you are a failure or have let yourself or your family down: not at all 7. Trouble concentrating on things, such as reading the newspaper or watching television: several days 8. Moving or speaking so slowly that other people could have noticed. Or the opposite - being so fidgety or restless that you have been moving around a lot more than usual: not at all 9. Thoughts that you would be better off or of hurting yourself in some way: not at all Total score: 1 Depression Screening Interpretation: Negative Depression Screening Done: Yes 30280 - PHQ-9 Billing: Yes Source: Developed by Drs. Davian Meredith, Soila Hudson, Harry Hassan and colleagues, with an educational cory from [employer]. Thrive Questionnaire Date Thrive assessed: 08/14/25 I am a: Patient AUDIT C Alcohol Use Questionnaire (AUDIT-C) 1. How often do you have a drink containing alcohol?: Never 3. How often do you have six or more drinks on one occasion?: Never Total Score: 0 Score Reviewed/Action Taken: Yes RICHARD-7 AMB Questionnaire RICHARD-7 Date RICHARD - 7 assessed: 08/14/25 Feeling nervous, anxious, or on edge: 0 = Not at all Not being able to stop or control worryin = Several days Worrying too much about different things: 0 = Not at all Trouble relaxin = Several days Being so restless that it is hard to sit still: 0 = Not at all Becoming easily annoyed or irritable: 0 = Not at all Feeling afraid as if something awful might happen: 0 = Not at all Total RICHARD-7 score (0-4 normal; 5-9 mild; 10-14 moderate; 15-21 severe): 2 Source: Developed by Drs. Davian Meredith, Soila Hudson, Harry Hassan and colleagues, with an educational cory from [employer]. RICHARD-7 Assessment Billing RICHARD-7 Assessment Tool: RICHARD-7 Assessment 01508 Review of Systems Narrative Review of Systems - Constitutional: Reports feeling he is not at 100% since his stroke but is improving. - Respiratory: Reports using rescue inhaler infrequently, approximately every couple of weeks. - Musculoskeletal: Reports bilateral hip pain that is worse in the morning for 30-60 minutes and is aggravated by walking. - Neurological: Reports sciatica on one side. - Genitourinary: Reports improvement in difficulty with urination since starting terazosin. All systems reviewed & are unremarkable except as reviewed in HPI and above Physical exam (Primary Care) Vital Signs: Last Vital Signs Temp 96.7 F L 08/14/25 15:51 Pulse 54 08/14/25 15:51 Resp 16 08/14/25 15:51 BP 130/68 08/14/25 15:51 Pulse Ox 98 08/14/25 15:51 Oxygen Delivery Method Room Air 08/14/25 15:51 BMI result Body Mass Index 27.4 Tobacco/Smoking Status: Tobacco use Status Tobacco use date assessed 08/14/25 08/14/25 15:53 Patient Tobacco Use Status Former Tobacco user 08/14/25 15:53 Tobacco use type Cigarette 08/14/25 15:53 e-Cigarette/Vaping Use Never Used 08/14/25 15:53 PHQ-9: PHQ-9 Score PHQ-9: Total score 1 08/14/25 15:53 Depression Screening Interpretation: Negative Thrive Assessment: Date of Thrive Assessment Date Thrive assessed 08/14/25 08/14/25 15:53 Narrative Physical Exam General: +Alert and oriented, Well nourished, No acute distress. Eye: Pupils are equal, round and reactive to light, Intact accommodation, Extraocular movements are intact, Normal conjunctiva, Vision unchanged. HENT: Normocephalic, Atraumatic, Tympanic membranes are clear, Normal hearing, Oral mucosa is moist, No pharyngeal erythema, Ear canals patent. Respiratory: Lungs CTA bilaterally, No wheeze, Respirations are non-labored. Cardiovascular: Regular rate, Regular rhythm, S1 auscultated, S2 auscultated, No murmur, Good pulses equal in all extremities, Normal peripheral perfusion, Mild swelling in legs. Gastrointestinal: Soft, Non-tender, Non-distended, Normal bowel sounds, No organomegaly. Musculoskeletal: Normal range of motion, Normal strength, No tenderness, No swelling, No deformity, Normal gait, Reports hip pain on both sides, possibly arthritis. Integumentary: Warm, Dry, [place], Intact. Neurologic: Alert, Oriented, Normal sensory, Normal motor function, No focal defects, Cranial Nerves II-XII are grossly intact, Normal deep tendon reflexes. Psychiatric: Cooperative, Appropriate mood & affect, Normal judgment. Office Procedures Flu Questionnaire Does the patient have a severe egg allergy?: No Does the patient have severe life threatening allergies?: No Does the patient have a fever or illness today?: No Has the patient ever had Guillain-Boyds Syndrome?: No Has the patient ever had any past reaction to a flu shot?: No Immunizations Fluarix [id number] (PF) 45 mcg (15 mcg x 3)/0.5 mL IM syringe Performing Provider: Farooq Johnson MD Performing Location: [facility] [place] [facility] Documented (not given) by: Belinda Soto CMA on 08/14/25 16:03 Reason Not Given: Received Previously Coding Level of Care Code Est Pt Level 4 (60899) Complex EM visit Add On G2211 Diagnoses Primary hypertension I10 Hypertension type: primary hypertension Hyperlipidemia, unspecified hyperlipidemia type E78.5 Hyperlipidemia type: unspecified Feeling of incomplete bladder emptying R39.14 History of CVA (cerebrovascular accident) Z86.73 Chronic low back pain with sciatica, sciatica laterality unspecified, unspecified back pain laterality M54.40; G89.29 Back pain location: low back pain Back pain laterality: unspecified Sciatica presence: with sciatica Sciatica laterality: sciatica laterality unspecified Lower extremity edema R60.0 Additional Codes RICHARD-7 Assessment Billing - RICHARD-7 Assessment Tool: RICHARD-7 Assessment 09207 ([id number]) PHQ-9 - 70841 - PHQ-9 Billing: Yes ([id number]) Assessment & Plan Assessment & Plan (1) HTN (hypertension): Comment: Home regimen: Amlodipine 5 mg daily, metoprolol succinate 25 mg daily Pressure is well controlled with home blood pressure log reviewed and stable within normal limits Code(s): I10 - Essential (primary) hypertension Category: Medical Qualifiers: Hypertension type: primary hypertension Qualified Code(s): I10 - Essential (primary) hypertension (2) HLD (hyperlipidemia): Comment: Currently on Repatha for now as prescribed by neurologist and obtain repeat lipid panel to evaluate Code(s): E78.5 - Hyperlipidemia, unspecified Category: Medical Qualifiers: Hyperlipidemia type: unspecified Qualified Code(s): E78.5 - Hyperlipidemia, unspecified (3) Feeling of incomplete bladder emptying: Comment: Reports controlled symptoms with the use of terazosin Code(s): R39.14 - Feeling of incomplete bladder emptying Category: Medical (4) History of CVA (cerebrovascular accident): Onset Date: ~2020 Comment: some memory loss, and slight speech problem however strength continues to improve Currently on Plavix Code(s): Z86.73 - Personal history of transient ischemic attack (TIA), and cerebral infarction without residual deficits Category: Medical (5) Chronic back pain: Comment: The patient has a history of effective back injections. - He is advised to follow up with his previous provider at [facility] for another injection, as the previous treatments have been successful. Code(s): M54.9 - Dorsalgia, unspecified; G89.29 - Other chronic pain Category: Medical Qualifiers: Back pain location: low back pain Back pain laterality: unspecified Sciatica presence: with sciatica Sciatica laterality: sciatica laterality unspecified Qualified Code(s): M54.40 - Lumbago with sciatica, unspecified side; G89.29 - Other chronic pain (6) Lower extremity edema: Comment: - The mild pitting edema is likely due to age-related venous insufficiency. - The patient is advised to elevate his legs when sitting and to use compression stockings to manage swelling and prevent complications. Code(s): R60.0 - Localized edema Category: Medical Plan: Health Maintenance: - Vaccinations: Strongly recommended the patient receive both the updated COVID-19 vaccine (sticking with Pfizer is acceptable) and the annual influenza shot. - Advised that both vaccines can be administered together. - Labs: Reordered blood work to check blood counts, electrolytes, glucose, thyroid function, and vitamin D levels. - Screening: Patient was informed he does not qualify for lung cancer screening per facility guidelines. - Lifestyle: Advised leg elevation and use of compression stockings for lower extremity edema. - Follow-up: Scheduled to return in four months. Patient was informed and verbally consented to the use of an ambient scribe for clinic note documentation during this visit. Plan I discussed with the patient the need to complete his blood work, which I have reordered, to monitor his various chronic conditions including cholesterol and blood sugar. I strongly recommended he receive both the COVID-19 and flu vaccines, explaining that prevention is better than cure and that it is safe to get them at the same time. Regarding his new bilateral hip pain, I explained that it is likely due to arthritis and that I have ordered x-rays to evaluate this further. I also addressed the swelling in his legs, explaining it is likely from weakening veins due to age and can be managed by elevating his legs and using compression stockings. For his recurrent sciatica, I supported his plan to return to his previous provider at [facility] for an injection, given his past success with that treatment. We also discussed that he does not qualify for lung cancer screening per our facility's guidelines. The patient is scheduled to follow up in four months. Orders: Orders Complete Blood Count Auto Diff Today Z00.00 - Encounter for general adult medical examination without abnormal findings, Z76.89 - Persons encountering health services in other specified circumstances Comprehensive Met. Panel Today Z00.00 - Encounter for general adult medical examination without abnormal findings, Z76.89 - Persons encountering health services in other specified circumstances Hemoglobin A1c Today Z00.00 - Encounter for general adult medical examination without abnormal findings, Z76.89 - Persons encountering health services in other specified circumstances HIV Ab/Ag Today Z00.00 - Encounter for general adult medical examination without abnormal findings, Z76.89 - Persons encountering health services in other specified circumstances Lipid Panel Today Z00.00 - Encounter for general adult medical examination without abnormal findings, Z76.89 - Persons encountering health services in other specified circumstances Syphilis Screen Today Z00.00 - Encounter for general adult medical examination without abnormal findings, Z76.89 - Persons encountering health services in other specified circumstances Hepatitis A,B,C Profile Today Z00.00 - Encounter for general adult medical examination without abnormal findings, Z76.89 - Persons encountering health services in other specified circumstances Microalbumin, Random (w Creat) Today Z00.00 - Encounter for general adult medical examination without abnormal findings, Z76.89 - Persons encountering health services in other specified circumstances XR hips PINA min 3V Today M25.559 - Pain in unspecified hip Influenza 9980-2717 Immunization Today Z23 - Encounter for immunization TSH reflex Free T4 Today Z00.00 - Encounter for general adult medical examination without abnormal findings, Z76.89 - Persons encountering health services in other specified circumstances Vitamin D 25-OH Total Today Z00.00 - Encounter for general adult medical examination without abnormal findings, Z76.89 - Persons encountering health services in other specified circumstances Medications: New albuterol sulfate 90 mcg/actuation 2 puffs inhalation Q4H PRN 8.5 grams 5RF Shortness Of Breath Or Wheezing Patient Instructions: - Please go to the lab to get your blood work done. A new order has been sent. - Get your updated COVID-19 shot and your yearly flu shot. It is safe to get them at the same time. - An order has been placed for X-rays of both of your hips. - For the swelling in your legs, put your legs up on a pillow or couch arm when you are sitting down. - Consider wearing compression stockings to help with the leg swelling. - Continue taking your current medications as prescribed. - You can use Tylenol for your hip pain. Be mindful of your activity level to avoid making the pain worse. - Follow up with your back doctor at [facility] for your sciatica pain. - Please schedule a follow-up appointment in four months.
== END 2025-08-14 16:27 | disposition home or self-care (01) ==
LOC: HO.HMCHD 15:48
PROVIDERS: PCP Student in an Organized Health Care Education/Training Program; Visit Provider Student in an Organized Health Care Education/Training Program
DX: I10 Essential (primary) hypertension (principal); E78.5 Hyperlipidemia, unspecified; R39.14 Feeling of incomplete bladder emptying; Z86.73 Personal history of transient ischemic attack (TIA), and cerebral infarction without residual deficits; M54.40 Lumbago with sciatica, unspecified side; G89.29 Other chronic pain; R60.0 Localized edema; Z23 Encounter for immunization

== ENCOUNTER 2025-08-14 15:48 | Outpatient (REF) | payer MEDICARE, SELFPAY ==
--- NOTE | ~2025-08-14 | XR_ITS ---
EXAMINATION: XR BILATERAL HIPS WITH AP PELVIS CLINICAL INFORMATION: M25.559 - Pain in unspecified hip COMPARISON: July 28, 2022] and July 26, 2018 [ TECHNIQUE: AP view of the pelvis and frog-leg lateral views of each hip were obtained. FINDINGS: LEFT HIP: Postsurgical changes are evident with mesh related coils from hernia repair projecting over the pelvis . Left hip joint space is preserved. Subtle marginal osteophyte is noted at the acetabular roof. There is mild sclerosis in the lower SI joints. RIGHT HIP: Hip joint spaces preserved and congruent. No degenerative changes are identified in the right hip. Right SI joint is unremarkable. There are clips projecting over the scrotum related to vasectomy. XR/XR hips PINA min 3V IMPRESSION: Minimal degenerative change left hip and left SI joint. Unremarkable right hip. Electronically signed by: Alexei Marcos MD 08/14/2025 05:55 PM EST
== END 2025-08-14 15:49 | disposition home or self-care (01) ==
LOC: HO.XRAY 15:48
PROVIDERS: PCP Family Medicine; Visit Provider Student in an Organized Health Care Education/Training Program
DX: Z76.89 Persons encountering health services in other specified circumstances (principal); I10 Essential (primary) hypertension; R39.14 Feeling of incomplete bladder emptying; E78.5 Hyperlipidemia, unspecified; Z13.31 Encounter for screening for depression; Z13.39 Encounter for screening examination for other mental health and behavioral disorders; Z86.73 Personal history of transient ischemic attack (TIA), and cerebral infarction without residual deficits; M54.40 Lumbago with sciatica, unspecified side; G89.29 Other chronic pain; R60.0 Localized edema; M25.559 Pain in unspecified hip
CPT/HCPCS: 73522; 90471; 96127; 99212

== ENCOUNTER → 2025-08-14 16:41 | Outpatient (BNV) | payer MEDICARE, SELFPAY | PROVIDERS: PCP Family Medicine; Visit Provider Radiology Diagnostic Radiology | DX: M25.552 Pain in left hip (principal); M25.551 Pain in right hip | CPT/HCPCS: 73522 ==

== ENCOUNTER 2025-08-16 07:57 | Outpatient (REF) | payer MEDICARE, SELFPAY ==
--- OUTSIDE RECORDS SUMMARY | 2025-01-02 05:40 | XMS_ITS ---
Author Organization [facility] Address [address] [place] [id number] Care Team Providers Care Dip Unit Operator Name Role Phone Rufus (RETIRED) Pio RICHARDSON Primary Care Provider Unavailable Davian Ochoa [phone] REASON FOR VISIT screening, hx polyps Encounters Encounter Location Date Provider Diagnosis [facility] [address] [place] [phone] 01/02/2025 Davian Ochoa Colon cancer scree huber [...] * MARTÍN PIRESDOB: 4 (70 yo M)Acc No.[id number]:01/02/2025 COLON WITH MAC Patient: MARTÍN CHOWDHURY Provider: Yissel Ochoa MD :[id number] A ge:69 Y S ex:Male Date:01/02/2025 Address:[address], [place] [id number] Pcp:Pio Hooper (RETIRED) MD Subjective: * Chief [...] Modifiers: PT 0529F INTRVL 3+YRS PTS CLNSCP [id number] RCMND FLW-UP 10 YRS DOCD Billing Information: * Procedure Codes: 04400 LESION REMOVAL COLONOSCOPY. Modifiers: PT 0529F INTRVL [...] 01/02/2025 Generated for Ludy sun/Carlos/Nayanaitting on: 1 10/16/2024 03:30 PM EST
[2025-08-16 10:45] LABS: MANUAL DIFF FLAG NO
[2025-08-16 10:48] LABS: Hematocrit 44.2 % (42.0-52.0); Hemoglobin 14.3 g/dl (14.0-18.0); Imm Gran Abs Auto 0.01 X10*3/uL (0.00-0.03); Imm Gran Pct Auto 0.2 % (0.0-0.4); Lymphocytes Absolute Auto 1.5 X10*3/uL (1.2-4.9); Mean Corpuscular HGB Conc 32.4 g/dl (31.0-36.0); Mean Corpuscular Hemoglobin 31.0 pg (27.0-33.0); Mean Corpuscular Volume 95.7 fL (80.0-98.0); NRBC Abs Auto 0.000 X10*3/uL (0.0-0.012); NRBC Pct Auto 0.0 /100WBC (0.0-0.2); Platelet Count 301 X10*3/uL (160-400); Red Blood Count 4.62 X10*6/uL (4.60-5.80); White Blood Count 5.6 X10*3/uL (4.8-10.8)
[2025-08-16 11:15] LABS: Alanine Aminotransferase 21 U/L (0-40); Albumin Level 4.8 g/dL (3.5-5.0); Alkaline Phosphatase 65 U/L (39-117); Anion Gap 10 (12-20); Aspartate Amino Transferase 31 U/L (5-37); Blood Urea Nitrogen 17 mg/dL (9-16); Calcium 10.3 mg/dL (8.4-10.2); Carbon Dioxide 30 mmol/L (22-29); Chloride 105 mmol/L (96-108); Cholesterol 115 mg/dL (<200); Estimated Glomerular Filt Rate > 60; HDL Cholesterol 44 mg/dL (>40); Potassium 4.2 mmol/L (3.3-5.1); Sodium 141 mmol/L (135-145); Total Protein 7.6 g/dL (6.5-8.0); Triglycerides 63 mg/dL (<150)
[2025-08-16 11:31] LABS: HBS Num1 0.52 mIU/mL (0-7.99); HBc Num1 0.09 S/CO (0.00-0.79); HBsAGNum1 0.91 S/CO (0.00-0.99); HIV Num 1 0.07 S/CO (0.00-0.99); Hepatitis A Antibody IgM 0.18 Index (0-0.79); Hepatitis B Surface Antigen Negative (Negative); ~HepC Num1 0.08 S/CO (0.00-0.79); ~Hepatitis A Antibody IgM Nonreactive (Nonreactive); ~Hepatitis B Surface Antibody NONREACTIVE (Nonreactive); ~Hepatitis C Antibody Nonreactive (Nonreactive)
[2025-08-16 11:34] LABS: Syphilis Screen Nonreactive (Nonreactive)
[2025-08-16 13:03] LABS: Microalbum/Creatinine Ratio Ur 9.9 ug/mg cr (<30)
--- OUTSIDE RECORDS SUMMARY | 2025-08-16 15:29 | XMS_ITS | Patient Health Record ---
Author Organization [facility] Address [address] [place] [address] Care Team Providers Care Machine Overhauler Name Role Phone Rufus (RETIRED) Pio RICHARDSON Primary Care Provider Unavailable Davian Ochoa Unavailable [phone] Allergies Allergen (clinical drug ingredient) Drug/Non Drug Allergy documented on EMR Reaction Allergy Type Onset Date Status Penicillin Unknown Drug Allergy Active Substance with 7-ovfuofc-1-methylgluta ryl-coenzyme A reductase inhibitor mechanism of action (substance) Statins Unknown Drug Allergy Active Results Component Value Reference Range Notes Pathology (Not yet reviewed by provider) Interpretation: Performing Lab:[facility], [address] [place] [id number] Notes/Report: Reason For Referral No Information Medications Medication SIG (Take, Route, Frequency, Duration) Notes Start Date End Date Status amLODIPine Besylate 5 MG Tablet Oral; Duration: 90 Active Metoprolol Succinate 25 MG Capsule ER 24 Hour Sprinkle 1 capsule Orally Once a day Active Allergy 24-HR 180 MG Tablet 1 tablet Swallow whole with water; do not take with fruit juices. Orally Once a day; Duration: 30 day(s) Active Flovent HFA 110 MCG/ACT Aerosol 1 puff Inhalation Twice a day Active Vitamin C 1000 MG Tablet 1 tablet Orally twice a day Active Doxazosin Mesylate 8 MG Tablet Oral; Duration: 90 Active Clopidogrel Bisulfate 75 MG Tablet TAKE 1 TABLET BY MOUTH EVERY DAY DIRECTED Oral; Duration: 90 Active Magnesium 200 MG Tablet as directed Oral ly Once at night Active Repatha SureClick 140 MG/ML Solution Auto-injector INJECT 140 MG SUBCUTANEOUSLY EVERY 14 DAYS Subcutaneous; Duration: 84 Active Omeprazole 20 MG Capsule Delayed Release Oral; Duration: 90 Active Immunizations Vaccine Route Administration Date Status Comme nts Influenza Unknown 07/07/2018 Administered Influenza Unknown 06/01/2019 Administered Pneumococcal Unknown 05/29/2019 Administered Social History Tobacco Use: Social History Observation Description Date Details (start date - stop date) Former Smoker NA - NA Social History Tobacco Use: Social Info Question Answer Notes Tobacco Use/Smoking Patient is a former smoker How long has it been since you last smoked? 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 Section Notes: Nonsmoker > 10 yrs;no alcoho l Nonsmoker > 10 yrs;no alcoho l Nonsmoker > 10 yrs;no alcoho l Nonsmoker > 10 yrs;no alcoho l Nonsmoker > 43 yrs;no alcoho l Problems Problem Type SNOMED Code ICD Code Onset Dates Problem Status W/U Status Risk Notes Problem Screening for malignant neoplasm of colon (280031007) Encounter for screening for malignant neoplasm of colon (Z12.11) Active confirmed Problem Gastroesophageal reflux disease with esophagitis (873316235) Gastroesophageal reflux disease with esophagitis (K21.0) Active confirmed Problem History of adenomatous polyp of colon (729008548) Hx of adenomatous colonic polyps (Z86.010) Active confirmed Problem Gastroesophageal reflux disease (disorder) (500323307) Chronic GERD (K21.9) Active confirmed Problem Personal history of adenomatous and serrated colon polyps (Z86.0101) Active confirmed Vital Signs Blood pressure diastolic 00 mm Hg 09/13/2024 Height 66 in 09/13/2024 Blood pressure systolic 00 mm Hg 09/13/2024 Weight 170 lbs 09/13/2024 BMI 27.44 kg/m2 09/13/2024 Encounters Encounter Location Date Provider Diagnosis [facility] [place] Outpatient [address] [place], [place] [phone] 01/02/2025 Davian Ochoa Colon cancer screeni ng Z12.11 ; Personal history of colonic polyps Z86.0100 ; Colon polyps K63.5 and Diverticulosis of large intestine without perforation or abscess without bleeding K57.30 [facility] [address] [place] [address] 09/13/2024 Davian Ochoa Hx of adenomatous colonic [...] progress. 01/02/2025 Colon polyps (ICD-10 - K63.5) 01/02/2025 [...] Insured Coverage Start Date Coverage End Date [facility] [address] [place] [address] [phone] [id number] MARTÍN PIRES Self - patient is the insured Medical (General) History Medical History History ICD Code GERD-EGD's in 1998, 2007, an d 11-14-2008--reflux esophagitis--small to mod-sized HH---no [employer] Colonoscopy 07-17-2006--1 small tubular adenoma removed Hyperlipidemia Anxiety Asthma Denies MO,DM,renal disease Neg. colonoscopy in 04/2014 e xcept [...]
--- OUTSIDE RECORDS SUMMARY | 2025-08-16 15:29 | XMS_ITS | Encounter Summary ---
Author Organization [facility] Address [address] [place] [address] Care Team Providers Care Gas Utility Worker Name Role Phone Pcp, No Primary Care Provider Unavailabl e Encounter Details Date Type Department Care Team (Late st Contact Info) Description 09/07/2017 Scanned Document [address] [phone] Provider, Generic Social History Tobacco Use Types [...] on filedocumented in this encounter Care Teams Gas Utility Worker Relationship Specialty Start Date End Date Pcp, No PCP - General General Medicine 06/11/17 documented as of this encounter
--- OUTSIDE RECORDS SUMMARY | 2025-08-16 15:29 | XMS_ITS | Encounter Summary ---
Author Organization [facility] Address [address] [place] [address] Care Team Providers Care Philosophy Faculty Member Name Role Phone Pcp, No Primary Care Provider Unavailabl e Encounter Details Date Type Department Care Team (Late st Contact Info) Description 09/07/2017 Scanned Document [address] [phone] Provider, Generic Social History Tobacco Use Types [...] on filedocumented in this encounter Care Teams Philosophy Faculty Member Relationship Specialty Start Date End Date Pcp, No PCP - General General Medicine 06/11/17 documented as of this encounter
--- OUTSIDE RECORDS SUMMARY | 2025-08-16 15:30 | XMS_ITS | Clinical Summary ---
Author Organization [facility] Address [address] [place] [id number] Care Team Providers Care Retail Delivery Driver Name Role Phone Pcp, No Primary Care [...] 50+ (1 of 1 - PCV) 2004 RSV Vaccine 50 years and old er and Patients (1 - Risk 50-74 years 1-dose series) 2004 Zoster (Shingles) Vaccine (1 of 2) 2004 Influenza Vaccine 04/28/2025 COVID-19 Vaccine ( - 2023-2 5 season) 2025 Hepatitis B Vaccines Aged Out No long er eligible based on patient's age to complete this topic Insurance AI Care Teams Retail Delivery Driver Relationship Specialty Start Date End Date Pcp, No PCP - General General Medicine 06/11/17
--- OUTSIDE RECORDS SUMMARY | 2025-08-16 15:30 | XMS_ITS | Clinical Summary ---
Author Organization [facility] Address [address] [place] [id number] Care Team Providers Care Airframe And Powerplant Mechanic Name Role Phone Farooq Johnson Primary Care Provider [phone] Allergies Active Allergy Reactions Criticality Noted Date Comments Atorvastatin 10/24/2021 Other reaction(s): rhabdo, elevated CPK - allergic to all STATINS Penicillin 11/05/2017 Medications FLOVENT HFA 110 mcg/actuation inhaler 8 Active metoprolol succinate XL (TOPROL-XL) 25 mg 24 hr tablet 8 Active sildenafil (VIAGRA) 100 mg tablet 8 Active MAGNESIUM ORAL Take 40 mg by mouth. Active ascorbic acid, vitamin C, (ascorbic acid with pamella hips) 500 mg tablet Take 500 mg by mouth in the morning. Active doxazosin (CARDURA) 4 mg tablet 2 Active Praluent Pen 150 mg/mL pen injector 2 Active omeprazole (PriLOSEC) 20 mg capsule 1 Active clopidogreL (PLAVIX) tablet TAKE 75 MG ORALLY DAILY FOR 90 DAYS Active terazosin (HYTRIN) 5 mg capsule Refills 0, Maintenance, 05/26/25 9:18:00 AM EDT, Partial fill upon patient request if the prescription is for a schedule II opioid drug. 5 Active Repatha SureClick 140 mg/mL pen injector INJECT 140 MG SUBCUTANEOUSLY EVERY 14 DAYS Active albuterol HFA 90 mcg/actuation inhaler as needed. 5 Active amLODIPine (NORVASC) 5 mg tablet take 1 tablet by mouth every day in the morning 5 Active Active Problems Problem Noted Date Diagnosed Date Carotid artery stenosis without cerebral infarct ion 07/28/2025 Lumbar radiculopathy, acute 07/01/2017 Protrusion of lumbar intervertebral disc 017 Essential hypertension 06/16/2017 Gastroesophageal reflux disease without esophagi tis 06/16/2017 Encounters Date Type Department Care Team Description 07/28/2025 9:30 AM EDT Ancillary Procedure [facility] Imaging Department of Xray [address] [place] [address] Low back pain, unspecified back pain laterality, unspecified chronicity, unspecified whether sciatica present 07/28/2025 9:30 AM EDT Office Visit [facility] Department of Comprehensive Spine Services [address] [place] [address] Maxwell Thomas MD Low back pain, unspecified back pain laterality, unspecified chronicity, unspecified whether sciatica present (Primary Dx); Lumbar spondylosis; Degenerative lumbar spinal stenosis; Lumbar radiculitis from Last 3 Months Immunizations Immunization Administration Dates Next Due COVID-19 mRNA (Take5) 12/22/2020,11/30/2020 Family History Relation Status Comments Father [...] on file Sexual Orientation Not on file COVID-19 Exposure Response Date Recorded In the last 10 days, have yo u been in contact with someone who was confirmed or suspected to have Coronavirus/COVID-19? No / Unsure 07/28/2025 9:00 AM EDT Last Filed Vital Signs Vital Sign Reading Time Taken Comments Blood Pressure 139/65 07/28/2025 9:43 AM EDT Pulse 59 07/28/2025 9:43 AM EDT Temperature 36.3 C (97.4 F) 03/13/2021 9:41 AM EDT Respiratory Rate 16 03/13/2021 10:21 AM EDT Oxygen Saturation 95% 03/13/2021 10:21 AM EDT Inhaled Oxygen Concentration - - Weight 77.1 kg (170 lb) 07/28/2025 9:43 AM EDT Height 166 cm (5' 5.35 ) 07/28/2025 9:43 AM EDT Body Mass Index 27.98 07/28/2025 9:43 AM EDT Plan of Treatment Health Maintenance Due Date Last Done Comments CT Colonography 1954 Colonoscopy 1954 Colorectal Cancer Screening 1954 FIT-DNA (Cologuard) 1954 FIT 1954 FOBT 1954 Flex Sigmoidoscopy - 5y 1954 HIV Screening 1954 Medicare Annual Wellness (AWV) 1954 DTaP,Tdap,and Td Vaccines (1 - Tdap) 1972 Hepatitis C Screening 1972 Zoster Vaccines (1 of 2) 2004 Pneumococcal Vaccine, 50+ Years (2 of 2 - PCV20 or PCV21) 06/17/2020 06/17/2019 COVID-19 Vaccine (4 - 2024-2 6 season) 2025 08/31/2021, 12/22/2020, 11/30/2020 Influenza Vaccine (#1) 2025 9, 06/29/2018, 06/16/2017 HPV Vaccines Aged Out No longer eligi ble based on patient's age to complete this topic Hepatitis A Vaccines Aged Out No long er eligible based on patient's age to complete this topic Meningococcal Vaccine Aged Out No po veronika eligible based on patient's age to complete this topic Insurance MEDICARE BS MEDICARE BCBS AI Advance Directives For more information, please contact: [phone] Documents on File Type Date Recorded Patient Milling Machine Operator Gear Expl anation Advance Directives 07/23/2018 1:19 PM Care Teams Airframe And Powerplant Mechanic Relationship Specialty Start Date End Date Farooq Johnson [address] [place] [phone] PCP - General 07/28/25
--- OUTSIDE RECORDS SUMMARY | 2025-08-16 15:30 | XMS_ITS | Encounter Summary ---
Author Organization [facility] Address [address] [place] [address] Care Team Providers Care Metal Trimmer Name Role Phone Pcp, No Primary Care Provider Unavailabl e Encounter Details Date Type Department Care Team (Late st Contact Info) Description 09/02/2017 Scanned Document [address] [phone] Provider, Generic Social History Tobacco Use Types [...] on filedocumented in this encounter Care Teams Metal Trimmer Relationship Specialty Start Date End Date Pcp, No PCP - General General Medicine 06/11/17 documented as of this encounter
--- OUTSIDE RECORDS SUMMARY | 2025-08-16 15:30 | XMS_ITS | Clinical Summary ---
Author Organization [facility] Address [address] [place] [address] Care Team Providers Care Automation And Controls Supervisor Name Role Phone Pio Hooper MD Primary Care Provider [phone] Social History Tobacco Use Types Packs/Day Years [...] age to complete this topic Care Teams Automation And Controls Supervisor Relationship Specialty Start Date End Date Pio Hooper MD [address] [place] [address] [place] [address] PCP - General Internal Medicine 09/07/17
== END 2025-08-16 07:58 | disposition home or self-care (01) ==
LOC: HO.10HDL 07:57
PROVIDERS: Visit Provider Student in an Organized Health Care Education/Training Program
DX: Z00.00 Encounter for general adult medical examination without abnormal findings (principal); Z76.89 Persons encountering health services in other specified circumstances; Z11.4 Encounter for screening for human immunodeficiency virus [HIV]; Z20.2 Contact with and (suspected) exposure to infections with a predominantly sexual mode of transmission; Z13.6 Encounter for screening for cardiovascular disorders; Z13.1 Encounter for screening for diabetes mellitus; Z13.29 Encounter for screening for other suspected endocrine disorder; Z13.21 Encounter for screening for nutritional disorder
CPT/HCPCS: 36415; 80053; 80061; 82043; 82306; 82570; 83036; 84443; 85025; 86704; 86706; 86709; 86780; 86803; 87340; 87389

== ENCOUNTER 2025-09-26 08:31 | Outpatient (AMB) | payer MEDICARE, SELFPAY ==
--- OUTSIDE RECORDS SUMMARY | 2025-01-02 05:40 | XMS_ITS ---
Author Organization [facility] Address [address] [place] [address] Care Team Providers Care Shop Hand Name Role Phone Rufus (RETIRED) Pio RICHARDSON Primary Care Provider Unavailable Davian Ochoa [phone] REASON FOR VISIT screening, hx polyps Encounters Encounter Location Date Provider Diagnosis [facility] Outpatient [address] [place] [phone] 01/02/2025 Davian Ochoa Colon cancer scree huber Z12.11 ; Personal history of colonic polyps Z86.0100 ; Colon polyps K63.5 and Diverticulosis of large intestine without perforation or abscess without bleeding K57.30 Assessments Encounter Date Diagnosis (ICD Code) Assessment Notes Treatment Notes Treatment Clinical Notes Section Notes 01/02/2025 Colon cancer screening (ICD-10 - Z12.11) 01/02/2025 Personal history of colonic polyps (ICD-10 - Z86.0100) 01/02/2025 Colon polyps (ICD-10 - K63.5) 01/02/2025 Diverticulosis of large intestine without perforation or abscess without bleeding (ICD-10 - K57.30) Plan Of Treatment No Information Progress Notes * MARTÍN PIRESDOB: 4 (70 yo M)Acc No.[id number]:01/02/2025 COLON WITH MAC Patient: MARTÍN CHOWDHURY Provider: Yissel Ochoa MD :1955 A ge:69 Y S ex:Male Date:01/02/2025 Address:[address] [facility] Pcp:Pio Hooper (RETIRED) MD Subjective: * Chief Complaints: * S creening, hx polyps Assessment: * Assessment: 1. C olon cancer screening - Z12.11 (Primary) 2 . P ersonal history of colonic polyps - Z86.0100 3 . C olon polyps - K63.5 4 . D iverticulosis of large intestine without perforation or abscess without bleeding - K57.30 Plan: * Procedure Codes: 4 5385 LESION REMOVAL COLONOSCOPY, Modifiers: PT 0529F INTRVL 3+YRS PTS CLNSCP [id number] RCMND FLW-UP 10 YRS DOCD Billing Information: * Procedure Codes: 95969 LESION REMOVAL COLONOSCOPY. Modifiers: PT 0529F INTRVL 3+YRS PTS CLNSCP DOCD. 0528F RCMND FLW-UP 10 YRS DOCD. * The named appointment provid er may or may not be the originator of this progress note, and it is not deemed complete until electronically signed by the appointment provider. Sign off status: Pending * Provider: Yissel Ochoa MD Date: 0 01/02/2025 Generated for Ludy sun/Carlos/Nayanaitting on: 1 10:08 AM EST
--- NOTE | 2025-09-26 08:32 | MHC.PC.OV ---
Vital Signs 09/26/25 08:33 Height 5 ft 6 in Weight 177 lb 2 oz BMI 28.6 BP 140/76 H Blood Pressure Location Lt brachial Position Sitting Respiration 16 Pulse 68 Pulse Source Pulse Oximeter Temp 97.1 F Temp Source Temporal Artery Scan Pulse Oximetry (%) 95 Oxygen Delivery Method Room Air Intake Visit Reasons: Body Aches Mastic Floor Layer Required: No Accompanied by: Spouse Allergies penicillin V Allergy (Severe, Verified 09/26/25 08:33) anaphylaxis trazodone Allergy (Severe, Verified 09/26/25 08:33) lethargy zolpidem (Ambien) Allergy (Severe, Verified 09/26/25 08:33) lethargy Yyasofs-YKV-HfR Reductase Inhibitor Allergy (Intermediate, Verified 09/26/25 08:33) Muscle cramps Medication List - Last Reconciled 09/26/25 by Farooq Johnson MD albuterol sulfate 90 mcg/actuation 2 puffs inhalation Q4H PRN amlodipine 5 mg PO QAM clopidogrel 75 mg PO DAILY 90 days evolocumab (Repathcamilo Faganick) 140 mg subcut Q2W fluticasone propionate 110 mcg/actuation 1 puff inhalation BID magnesium 400 mg PO DAILY metoprolol succinate ER 25 mg PO DAILY miscellaneous medical supply (Tube and Connector Kit) Heated tubing element for CPAP multivitamin 1 tab PO DAILY omeprazole 20 mg PO BID terazosin 5 mg PO BEDTIME 30 days Tobacco use date assessed: 08/14/25 Fall risk assessment: No Falls in past year Last assessed Fall Risk: 09/26/25 Dental Screening Dental Screen Date: 08/14/25 HPI HPI Comments History of Present Illness Details History of Present Illness The patient is a 70 year old male presenting with generalized body pain. He reports that for the past month, his entire body has been hurting. The symptoms began after his July visit for hip pain, initially affecting his shoulders and subsequently becoming widespread. The patient describes the pain as being worse in the morning, accompanied by significant stiffness that makes it difficult to move. His symptoms improve with movement throughout the day, and he notes relief from hot showers and Tylenol. Cold weather appears to exacerbate his symptoms. The pain, particularly in his shoulders, disrupts his sleep as he is a side sleeper. He reports no recent infections, though he thinks he may be starting a head cold as of yesterday. His medical history is significant for a previous stroke, for which he takes Plavix. He had a hip x-ray in July which showed mild degenerative changes. He received a flu shot on August 19. The patient also reports issues with constipation, for which he has tried MiraLAX intermittently. 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 Social History - Exercise: The patient has a treadmill at home but has not been walking recently due to cold weather and pain. - Functional Status: Reports becoming sore after snow blowing. - Environment: Lives by the [facility] Medical History (Updated 09/26/25 @ 09:04 by Farooq Johnson MD) Constipation Joint pain Lower extremity edema Chronic back pain Hip pain Lung cancer screening declined by patient History of CVA (cerebrovascular accident) (~2020) Renal calculi CECELIA on CPAP HTN (hypertension) Asthma Anxiety HLD (hyperlipidemia) GERD (gastroesophageal reflux disease) Surgical History History of left-sided carotid endarterectomy (2021) Hx of colonoscopy (~01/02/25) History of esophagogastroduodenoscopy (EGD) Social History Household Members: Spouse Housing: House Are you a primary career services representative to a significant other at home: No Do you presently have visiting nurse or other home services: No Patient Tobacco Use Status: Former Tobacco user Tobacco use type: Cigarette e-Cigarette/Vaping Use: Never Used service: No Current occupational status: retired Cognitive needs: No Hearing needs: No Vision needs: Yes (glasses) Questionnaire Thrive Questionnaire Date Thrive assessed: 08/14/25 AUDIT C Alcohol Use Questionnaire (AUDIT-C) 1. How often do you have a drink containing alcohol?: Never 3. How often do you have six or more drinks on one occasion?: Never Total Score: 0 RICHARD-7 AMB Questionnaire RICHARD-7 Date RICHARD - 7 assessed: 08/14/25 Source: Developed by Drs. Davian Meredith, Soila Hudson, Harry Hassan and colleagues, with an educational cory from [employer]. Review of Systems Narrative Review of Systems - Musculoskeletal: Reports diffuse body pain for one month, primarily affecting the shoulders and hips. - Reports morning stiffness which improves with movement. - Reports pain in his neck which he describes as feeling like muscle pain. - Reports his hands feel stiff. - Constitutional: Reports feeling like he is starting a head cold since yesterday. - Denies recent fevers, chills, or other signs of infection. - Skin: Denies any skin lesions. - Gastrointestinal: Reports constipation. All systems reviewed & are unremarkable except as reviewed in HPI and above Physical exam (Primary Care) Vital Signs: Last Vital Signs Temp 97.1 F 09/26/25 08:33 Pulse 68 09/26/25 08:33 Resp 16 09/26/25 08:33 BP 140/76 H 09/26/25 08:33 Pulse Ox 95 09/26/25 08:33 Oxygen Delivery Method Room Air 09/26/25 08:33 Care Plan Goal for BP management: In Goal Next steps: Continue BMI result Body Mass Index 28.6 Tobacco/Smoking Status: Tobacco use Status Tobacco use date assessed 08/14/25 09/26/25 08:38 Patient Tobacco Use Status Former Tobacco user 09/26/25 08:38 Tobacco use type Cigarette 09/26/25 08:38 e-Cigarette/Vaping Use Never Used 09/26/25 08:38 Thrive Assessment: Date of Thrive Assessment Date Thrive assessed 08/14/25 09/26/25 08:38 Narrative Physical Exam General: +Alert and oriented, Well nourished, No acute distress. Eye: Pupils are equal, round and reactive to light, Intact accommodation, Extraocular movements are intact, Normal conjunctiva, Vision unchanged. HENT: Normocephalic, Atraumatic, Tympanic membranes are clear, Normal hearing, Oral mucosa is moist, No pharyngeal erythema, Ear canals patent. Respiratory: Lungs CTA bilaterally, No wheeze, Respirations are non-labored. Cardiovascular: Regular rate, Regular rhythm, S1 auscultated, S2 auscultated, No murmur, Good pulses equal in all extremities, Normal peripheral perfusion, No edema. Gastrointestinal: Soft, Non-tender, Non-distended, Normal bowel sounds, No organomegaly. Musculoskeletal: Limited range of motion, Decreased strength, Tenderness in shoulders and hips, No swelling, No deformity, Normal gait. Integumentary: Warm, Dry, [place], Intact. Neurologic: Alert, Oriented, Normal sensory, Normal motor function, No focal defects, Cranial Nerves II-XII are grossly intact, Normal deep tendon reflexes. Psychiatric: Cooperative, Appropriate mood & affect, Normal judgment. Coding Level of Care Code Est Pt Level 4 (07462) Add On Problem Visit Only Diagnoses Arthralgia, unspecified joint M25.50 Joint pain location: unspecified Constipation, unspecified constipation type K59.00 Constipation type: unspecified constipation type Primary hypertension I10 Hypertension type: primary hypertension Hyperlipidemia, unspecified hyperlipidemia type E78.5 Hyperlipidemia type: unspecified Feeling of incomplete bladder emptying R39.14 CECELIA on CPAP G47.33 Assessment & Plan Assessment & Plan (1) Joint pain: Comment: - The patient's presentation with generalized body pain, morning stiffness, and improvement with activity is consistent with an arthritic process. - The differential diagnosis includes simple osteoarthritis, rheumatoid arthritis, and post-Lyme disease complications. - A medication side effect causing muscle breakdown is also being considered. - Order labs to investigate differentials, including rheumatoid factor (RF), Lyme disease titers, and CPK for muscle breakdown. - Obtain bilateral shoulder x-rays to assess for joint pathology. - Encourage continued activity, exercise (treadmill), stretching, and using warm showers for symptomatic relief. - Recommend pain management with regular Tylenol and careful, intermittent use of ibuprofen, alternating between the two. - Plan for a referral to a vacation guide if symptoms worsen or do not improve. - Schedule a telehealth follow-up in three weeks to review results and progress. Code(s): M25.50 - Pain in unspecified joint Category: Medical Qualifiers: Joint pain location: unspecified Qualified Code(s): M25.50 - Pain in unspecified joint (2) Constipation: Comment: - The patient reports constipation despite intermittent use of MiraLAX. - Advised to take MiraLAX on a scheduled basis, two scoops twice a day (morning and evening). - He should reduce the dose if he develops diarrhea. - Can also supplement with Metamucil. Code(s): K59.00 - Constipation, unspecified Category: Medical Qualifiers: Constipation type: unspecified constipation type Qualified Code(s): K59.00 - Constipation, unspecified (3) HTN (hypertension): Comment: Home regimen: Amlodipine 5 mg daily, metoprolol succinate 25 mg daily Pressure is well controlled with home blood pressure log reviewed and stable within normal limits Code(s): I10 - Essential (primary) hypertension Category: Medical Qualifiers: Hypertension type: primary hypertension Qualified Code(s): I10 - Essential (primary) hypertension (4) HLD (hyperlipidemia): Comment: Currently on Repatha for now as prescribed by neurologist and obtain repeat lipid panel to evaluate Code(s): E78.5 - Hyperlipidemia, unspecified Category: Medical Qualifiers: Hyperlipidemia type: unspecified Qualified Code(s): E78.5 - Hyperlipidemia, unspecified (5) Feeling of incomplete bladder emptying: Comment: Reports controlled symptoms with the use of terazosin Code(s): R39.14 - Feeling of incomplete bladder emptying Category: Medical (6) CECELIA on CPAP: Comment: Adherent to CPAP Code(s): G47.33 - Obstructive sleep apnea (adult) (pediatric) Category: Medical Plan: Health Maintenance: - Patient received his influenza vaccine on August 19. - Discussed the importance of physical activity, encouraging use of his home treadmill and stretching to manage joint stiffness. - Advised to eat nutritious food and maintain good hydration. Patient was informed and verbally consented to the use of an ambient scribe for clinic note documentation during this visit. Plan I discussed with the patient that his symptoms of widespread pain and significant morning stiffness are most characteristic of an arthritic condition. I explained that while this could be standard [id number] arthritis, we also need to rule out other possibilities like rheumatoid arthritis, which is an autoimmune condition, and complications from a past Lyme disease infection. To investigate these possibilities, we will proceed with blood tests and x-rays of his shoulders. I emphasized that the most important intervention at this stage is to remain physically active, as inactivity will worsen the stiffness and pain. We reviewed pain medication options, including how to safely use Tylenol and sparingly use ibuprofen, noting its interaction with his Plavix. We also discussed a plan for his constipation, advising a more regular and increased dose of MiraLAX. I will follow up with him via telehealth in three weeks to review the results, and we will consider a referral to a vacation guide if his condition does not improve. Orders: Orders Rheumatoid Factor Today M25.50 - Pain in unspecified joint XR Shoulder Jd min 2V Today M25.50 - Pain in unspecified joint Creatine Kinase Total Today M25.50 - Pain in unspecified joint Basic Metabolic Panel Today M25.50 - Pain in unspecified joint Lyme IgG/IgM w/reflex to WB Today M25.50 - Pain in unspecified joint Patient Instructions: - It is very important to stay active to help with your joint pain and stiffness. - Use your treadmill and stretch as much as you can, especially in the morning when you feel most stiff. - For pain, you can take Tylenol regularly. - You may take an occasional ibuprofen (Advil), but do not take it too often as it can interact with your Plavix. - Try taking Tylenol, then an ibuprofen a few hours later, then go back to Tylenol. - For constipation, take MiraLAX every day, once in the morning and once in the evening. - If you start having diarrhea, you are taking too much and should cut back. - Go to the lab for the ordered blood work and get x-rays of your shoulders. - We will have a phone or video call in about three weeks to check on you and go over your test results. - Eat healthy foods and drink plenty of water.
[2025-09-26 08:33] VITALS: BP 140/76; PULSE 68; RESP 16; TEMP 36.2; O2SAT 95; BMI 28.6
--- OUTSIDE RECORDS SUMMARY | 2025-09-26 10:08 | XMS_ITS | Encounter Summary ---
Author Organization [facility] Address [address] [place] [address] Care Team Providers Care Engineering Operations Leader Name Role Phone Pcp, No Primary Care Provider Unavailabl e Encounter Details Date Type Department Care Team (Late st Contact Info) Description 09/02/2017 Scanned Document [address] [phone] Provider, Generic Social History Tobacco Use Types [...] on filedocumented in this encounter Care Teams Engineering Operations Leader Relationship Specialty Start Date End Date Pcp, No PCP - General General Medicine 06/11/17 documented as of this encounter
--- OUTSIDE RECORDS SUMMARY | 2025-09-26 10:08 | XMS_ITS | Clinical Summary ---
Author Organization formerly [facility] Address [address] [place] [address] Care Team Providers Care Drug Enforcement Administration Agent Name Role Phone Farooq Johnson Primary Care Provider [phone] Allergies Active Allergy Reactions Criticality Noted Date [...] Description 07/28/2025 9:30 AM EDT Ancillary Procedure formerly [facility] Imaging Department of Xray [address] [place] [address] Low back pain, unspecified back pain laterality, unspecified chronicity, unspecified whether sciatica present 07/28/2025 9:30 AM EDT Office Visit formerly [facility] Department of Comprehensive Spine Services [address] [place] [address] Maxwell Thomas MD Low back pain, unspecified back pain laterality, unspecified chronicity, unspecified whether sciatica present (Primary Dx); Lumbar spondylosis; Degenerative lumbar spinal stenosis; Lumbar radiculitis from Last 3 Months Immunizations Immunization Administration Dates Next Due COVID-19 mRNA (PFIZER) 12/22/2020,11/30/2020 Family History Relation Status Comments Father Mother Social History Tobacco Use Types Packs/Day Years Used Date Smoking Tobacco: Former Cigarettes 0 Q uit: 1973 Smokeless Tobacco: Never Alcohol [...] on patient's age to complete this topic Procedures Procedure Name Priority Date/Time Associated Diagnosis Comments EOS FULL BODY 2 VW (AP+LATERAL) Routine 07/28/2025 9:35 AM EDT Low back pain, unspecified back pain laterality, unspecified chronicity, unspecified whether sciatica present from Last 3 Months Results * EOS FULL BODY 2 VW (AP+LATERAL) (07/28/2025 9:35 AM EDT) Anatomical Region Laterality Modality Spine, C-spine, T-spine, L-spine, Lower Leg Digital Radiography 08/28/2025 7:16 AM EST Impressions 08/28/2025 7:20 AM EST Spine alignment, as above. For detailed measurements, please refer to the treating clinician's evaluation. Reminder to Patients and Legally Authorized Representatives: Language in this report is designed for medical communication with other treating physicians and clinical practitioners. Please speak with your provider(s) about any questions or concerns related to the content of this report. Isaías Dougherty MD Narrative 08/28/2025 7:20 AM EST EXAM: EOS FULL BODY 2 VW (AP+LATERAL) INDICATION: Lower back pain. M54.50 Low back pain, unspecified TECHNIQUE: EOS FULL BODY 2 VW (AP+LATERAL). COMPARISON: Radiographs of the lumbar spine, February 21, 2021. FINDINGS: AP: Scoliosis: Mild 11 degree dextroconvex scoliosis centered at the L1 level, SAGITTAL: Severe degenerative spondylosis of the C3-C4 and C6-C7 levels. Moderate to severe multilevel degenerative spondylosis throughout the thoracic spine. Severe multilevel degenerative spondylosis within the lower lumbar spine. 5 mm anterolisthesis of L5 on S1 secondary to chronic pars interarticularis defects. Kyphosis: Within normal limits. Sagittal Vertical [place]: Positive sagittal balance, + 2.6 cm. MISCELLANEOUS: Imaged lung parenchyma is clear. Non specific bowel gas pattern. Moderate to large volume of stool throughout the nondilated colon. Post surgical changes are present within the left inguinal region, status post herniorrhaphy. Status post vasectomy. Procedure Note Isaías Dougherty MD - 08/28/2025 EXAM: EOS FULL BODY 2 VW (AP+LATERAL) INDICATION: Lower back pain. M54.50 Low back pain, unspecified TECHNIQUE: EOS FULL BODY 2 VW (AP+LATERAL). COMPARISON: Radiographs of the lumbar spine, February 21, 2021. FINDINGS: AP: Scoliosis: Mild 11 degree dextroconvex scoliosis centered at the E8mpusb, SAGITTAL: Severe degenerative spondylosis of the C3-C4 and C6-C7 levels. Moderate to severe multilevel degenerative spondylosis throughout thethoracic spine. Severe multilevel degenerative spondylosis within the lower lumbarspine. 5 mm anterolisthesis of L5 on S1 secondary to chronic parsinterarticularis defects. Kyphosis: Within normal limits. Sagittal Vertical [place]: Positive sagittal balance, + 2.6 cm. MISCELLANEOUS: Imaged lung parenchyma is clear. Non specific bowel gas pattern. Moderate to large volume of stool throughout the nondilated colon. Post surgical changes are present within the left inguinal region, statuspost herniorrhaphy. Status post vasectomy. IMPRESSION: Spine alignment, as above. For detailed measurements, please refer to the treating clinician'sevaluation. Reminder to Patients and Legally Authorized Representatives: Language in this report is designed for medical communication with othertreating physicians and clinical practitioners. Please speak with your provider(s) about any questions or concernsrelated to the content of this report. Isaías Dougherty MD Maxwell Thomas MD IMG XR PROCEDURES Final Result from Last 3 Months Insurance MEDICARE BCBS MEDICARE BCBS [id number] Advance Directives For more information, please contact: [phone] Documents on File Type Date Recorded Patient Accounts Payables Clerk Expl anation Advance Directives 07/23/2018 1:19 PM Care Teams Drug Enforcement Administration Agent Relationship Specialty Start Date End Date Farooq Johnson [address] [place] [address] [address] [place] [id number] PCP - General 07/28/25
--- OUTSIDE RECORDS SUMMARY | 2025-09-26 10:08 | XMS_ITS | Clinical Summary ---
Author Organization [facility] Address [address] [place] [address] Care Team Providers Care Theoretical Physics Teacher Name Role Phone Pcp, No Primary Care [...] 2) 2004 Influenza Vaccine 04/28/2025 COVID-19 Vaccine (1 - 2024-2 6 season) 2025 Hepatitis B Vaccines Aged Out No long er eligible based on patient's age to complete this topic Insurance AI Care Teams Theoretical Physics Teacher Relationship Specialty Start Date End Date Pcp, No PCP - General General Medicine 06/11/17
--- OUTSIDE RECORDS SUMMARY | 2025-09-26 10:08 | XMS_ITS | Patient Health Record ---
Author Organization [facility] Address [address] [place] [address] Care Team Providers Care Roving Court Reporter Name Role Phone Rufus (RETIRED) Pio RICHARDSON Primary Care Provider Unavailable Davian Ochoa Unavailable [phone] Allergies Allergen (clinical drug ingredient) Drug/Non Drug Allergy documented on EMR Reaction Allergy Type Onset Date Status Penicillin Unknown Drug Allergy Active Substance with 2-dvgqtex-7-methylgluta ryl-coenzyme A reductase inhibitor mechanism of action (substance) Statins Unknown Drug Allergy Active Results Component Value Reference Range Notes Pathology (Not yet reviewed by provider) Interpretation: Performing Lab:[facility], [address] [place] [id number] Notes/Report: Reason For Referral No Information Medications [...] Info Options Details Miscellaneous: Marital status: 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 Section Notes: Nonsmoker > 10 yrs;no alcoho l Nonsmoker > 10 yrs;no alcoho l Nonsmoker > 10 yrs;no alcoho l Nonsmoker > 10 yrs;no alcoho l Nonsmoker > 43 yrs;no alcoho l Problems Problem Type SNOMED Code ICD Code Onset Dates Problem Status W/U Status Risk Notes Problem Screening for malignant neoplasm of colon (337736835) Encounter for screening for malignant neoplasm of colon (Z12.11) Active confirmed Problem Gastroesophageal reflux disease with esophagitis (030596150) Gastroesophageal reflux disease with esophagitis (K21.0) Active confirmed Problem History of adenomatous polyp of colon (540189690) Hx of adenomatous colonic polyps (Z86.010) Active confirmed Problem Gastroesophageal reflux disease (disorder) (996150811) Chronic GERD (K21.9) Active confirmed Problem Personal history of adenomatous and serrated colon polyps (Z86.0101) Active confirmed Encounters Encounter Location Date Provider Diagnosis [facility] [place] Outpatient [address] [place] [id number] 01/02/2025 Davian Ochoa Colon cancer kristale huber Z12.11 ; Personal history of colonic [...] Insured Coverage Start Date Coverage End Date [facility] [id number] [place] [address] [id number] MARTÍN PIRES Self - patient is the insured Medical (General) History Medical History History ICD Code GERD-EGD's in 1998, 2007, an d 11-14-2008--reflux esophagitis--small to mod-sized HH---no [employer] Colonoscopy 07-17-2006--1 small tubular adenoma removed Hyperlipidemia Anxiety Asthma Denies MT,DM,renal disease Neg. colonoscopy in 04/2014 e xcept [...]
--- OUTSIDE RECORDS SUMMARY | 2025-09-26 10:08 | XMS_ITS | Encounter Summary ---
Author Organization [facility] Address [address] [place] [address] Care Team Providers Care Window Glazier Name Role Phone Pcp, No Primary Care Provider Unavailabl e Encounter Details Date Type Department Care Team (Late st Contact Info) Description 09/07/2017 Scanned Document [address] [phone] Provider, Generic Social History Tobacco Use Types [...] on filedocumented in this encounter Care Teams Window Glazier Relationship Specialty Start Date End Date Pcp, No PCP - General General Medicine 06/11/17 documented as of this encounter
--- OUTSIDE RECORDS SUMMARY | 2025-09-26 10:08 | XMS_ITS | Clinical Summary ---
Author Organization [facility] Prior to 02/25/[address] [place] [address] Care Team Providers Care Director Of Mechanical Engineering Name Role Phone Pio Hooper MD Primary Care Provider [phone] Social History Tobacco Use Types Packs/Day Years [...] age to complete this topic Care Teams Director Of Mechanical Engineering Relationship Specialty Start Date End Date Pio Hooper MD [address] [place] [address] [place] [address] PCP - General Internal Medicine 09/07/17
--- OUTSIDE RECORDS SUMMARY | 2025-09-26 10:08 | XMS_ITS | Encounter Summary ---
Author Organization [facility] Address [address] [place] [address] Care Team Providers Care Stock Puller Name Role Phone Pcp, No Primary Care Provider Unavailabl e Encounter Details Date Type Department Care Team (Late st Contact Info) Description 09/07/2017 Scanned Document [address] [phone] Provider, Generic Social History Tobacco Use Types [...] on filedocumented in this encounter Care Teams Stock Puller Relationship Specialty Start Date End Date Pcp, No PCP - General General Medicine 06/11/17 documented as of this encounter
== END 2025-09-26 09:04 | disposition home or self-care (01) ==
PROVIDERS: PCP Student in an Organized Health Care Education/Training Program; Visit Provider Student in an Organized Health Care Education/Training Program
DX: M25.50 Pain in unspecified joint (principal); K59.00 Constipation, unspecified; I10 Essential (primary) hypertension; E78.5 Hyperlipidemia, unspecified; R39.14 Feeling of incomplete bladder emptying; G47.33 Obstructive sleep apnea (adult) (pediatric)

== ENCOUNTER → 2025-09-26 09:30 | Outpatient (BNV) | payer MEDICARE, SELFPAY | PROVIDERS: PCP Student in an Organized Health Care Education/Training Program; Visit Provider Radiology Diagnostic Radiology | DX: M19.011 Primary osteoarthritis, right shoulder (principal); M19.012 Primary osteoarthritis, left shoulder; M25.711 Osteophyte, right shoulder; M25.712 Osteophyte, left shoulder | CPT/HCPCS: 73030 ==